=== PATIENT | male | born 1955 | race Caucasian/White ===

== ENCOUNTER 2021-12-28 09:27 | Emergency (ER) | payer OTHER, SELFPAY ==
--- NOTE | 2021-12-28 09:31 | ED.URI ---
HPI - URI/Sore Throat General Chief Complaint: Upper Respiratory Infection Stated Complaint: SORE THROAT Time Seen by Provider: 12/28/21 09:31 Source: patient and RN notes reviewed History of Present Illness HPI Narrative: Patient is a 66-year-old male who presents the urgent care with complaints of a severe sore throat that started last Thursday. Patient states he was on vacation with a lot of children and developed the sore throat and a slight head cold. Patient states that he had some chills for couple days last week and the head cold has now resolved. Denies any known fever, nausea or vomiting. Patient denies any other upper respiratory complaints at this time. States that he has been gargling with salt water and Listerine. Denies of any ill exposures directly. No other acute complaints. No acute distress noted. Patient aware of the plan of care. Some parts of this dictation were generated by voice recognition software and may contain typographical and/or grammatical inaccuracies. Related Data Allergies Allergy/AdvReac Type Severity Reaction Status Date / Time No Known Allergies Allergy Verified 12/02/21 15:28 Review of Systems Review of Systems: CONSTITUTIONAL: Denies fever, chills, or sweats. EYES: Denies visual changes, redness, or discharge. ENT: Denies rhinorrhea, congestion, or otalgia. Reports of sore throat CARDIOVASCULAR: Denies chest pain, palpitations, or edema. RESPIRATORY: Denies cough or dyspnea. GASTROINTESTINAL: Denies abdominal pain, nausea, vomiting, or diarrhea. GENITOURINARY: Denies dysuria or hematuria. SKIN: Denies rash or itching. MUSCULOSKELETAL: Denies back pain, joint pain, or myalgia. NEUROLOGIC: Denies headache, numbness, or weakness. All other systems reviewed are negative, except as documented in HPI. [facility] Surgical History Surgical History H/O discectomy (~1999) Family History Family History Sibling Diabetes mellitus Family history of obesity Mother Patient's mother is in good health Father Patient's father is , Onset Age: 40 Family history of elevated blood lipids Family history of thoracic aortic aneurysm Social History Social History (Updated 12/02/21 @ 15:29 by ERICK Herrera Smoking status: Never smoker Alcohol intake: current Comments At the time of my signature, I reviewed and agree with the nursing past medical, surgical, social, and family history. There is no relevant family history pertinent to the patient complaint. Exam Narrative: GENERAL: This is a well-nourished, well-developed patient, in no apparent distress. HEAD: normocephalic, atraumatic. EYES: PERRL. Sclera clear/white. Vision is grossly intact. EARS: External ears normal, auditory canals clear and without drainage, TMs normal without perforation. Hearing grossly intact. NOSE: External nose normal with no obvious nasal discharge, nares without redness, no rhinorrhea. THROAT: Mucous membranes moist. Mild erythema noted posterior pharynx without tonsillar edema, exudate, or erythema. Mild postnasal drainage NECK: Neck supple, non-tender without lymphadenopathy CARDIOVASCULAR: Regular rate and rhythm without murmurs, gallops, or rubs. RESPIRATORY: Clear to auscultation. Breath sounds equal bilaterally. No wheezes, rales, or rhonchi. SKIN: warm, intact with no suspicious lesions or rash, good texture and turgor. NEURO: awake, alert, and oriented to person, place and time. There were no obvious focal neurologic abnormalities. EXTREMITIES: No clubbing, cyanosis, or edema. Course Course Level of Care: Express Care Visit Vital Signs Vital signs: Vital Signs Temperature 98.8 F 12/28/21 09:33 Pulse Rate 77 12/28/21 09:33 Respiratory Rate 16 12/28/21 09:33 Blood Pressure 123/88 12/28/21 09:33 Pulse Oximetry 98 12/28/21 09:33 Temperature 98.
[2021-12-28 09:33] VITALS: BP 123/88; PULSE 77; RESP 16; TEMP 37.1; O2SAT 98
== END 2021-12-28 09:55 | disposition home or self-care (01) ==
PROVIDERS: Emergency Provider Nurse Practitioner Family; PCP Physician Assistant
DX: J02.9 Acute pharyngitis, unspecified (principal); E78.00 Pure hypercholesterolemia, unspecified
CPT/HCPCS: 87081; 87880; 99213; G0463

== ENCOUNTER → 2022-06-27 14:52 | Outpatient (CLI) | payer OTHER, SELFPAY ==
--- NOTE | ~2022-06-27 | XR_ITS ---
EXAMINATION: XR thoracic spine 3V DATE: 06/27/2022 15:22 INDICATION: Thoracic back pain TECHNIQUE: AP, lateral and lateral swimmer's views of the thoracic spine were obtained. COMPARISON: None. FINDINGS: Alignment is normal. There is no fracture. There is mild loss of intervertebral disc space height at multiple levels in the thoracic spine. Small degenerative osteophytes project from the ante rior endplates of multiple vertebral bodies. Moderate lower cervical spondylosis is noted. IMPRESSION: 1. Mild thoracic spondylosis without acute findings. Reviewed, dictated and finalized at location B. UNT ADMINISTRATOR
--- NOTE | ~2022-06-27 | XR_ITS ---
EXAMINATION: XR lumbar spine min 4V DATE: 06/27/2022 15:22 INDICATION: Low back pain TECHNIQUE: Anteroposterior, lateral, and bilateral oblique views of the lumbar spine, and cone-down l ateral view of the lumbosacral junction were obtained. COMPARISON: None. FINDINGS: There are 3 mm of retrolisthesis of L3 on L4. There is no fracture. There is moderate loss of intervertebral disc space height at L1-2, L3-4, and L5-S1. The vertebral body heights are maintain ed. Small degenerative osteophytes project from the anterior endplates of multiple vertebral bodies. There is moderate facet joint osteoarthritis of the lower lumbar spine. IMPRESSION: 1. Mild lumbar spondylosis without acute findings. Reviewed, dictated and finalized at location B. INE ATTENDANT
== END ==
PROVIDERS: PCP Physician Assistant; Visit Provider Physician Assistant
DX: M47.894 Other spondylosis, thoracic region (principal); M47.896 Other spondylosis, lumbar region
CPT/HCPCS: 72072; 72110

== ENCOUNTER → 2022-07-22 14:38 | Outpatient (CLI) | payer OTHER, SELFPAY ==
--- NOTE | ~2022-07-22 | MR_ITS ---
EXAMINATION: MR lumbar spine wo con DATE: 07/22/2022 15:37 INDICATION: Low back pain. TECHNIQUE: Magnetic resonance imaging (MRI) of the lumbar spine was performed without intravenous con trast. Sequences included sagittal T2-weighted FSE, sagittal T2-weighted FS FSE, sagittal T1-weighted FSE, and axial T2-weighted FSE. COMPARISON: Lumbar spine MRI 12/08/2017 FINDINGS: There is 3 mm retrolisthesis of L3 on L4. Vertebral body heights are normal. There is moder ately decreased disc height at L3-L4 and mildly decreased disc height at L4-L5. There is severely dec reased disc height at L5-S1 with interbody fusion. The distal spinal cord signal intensity is normal. The conus medullaris is at L1. The following disc levels are specifically discussed: L1-L2: The disc does not extend beyond the endplate margin. There is mild bilateral facet joint osteo arthritis. There is no neural foraminal stenosis. There is no central canal stenosis. L2-L3: The disc does not extend beyond the endplate margin. There is mild left facet joint osteoarthr itis. There is no neural foraminal stenosis. There is no central canal stenosis. L3-L4: The disc is bulging and has an annular fissure. There is moderate bilateral facet joint osteoa rthritis. There is moderate bilateral neural foraminal stenosis. There is mild central canal stenosis . L4-L5: The disc is bulging. There is severe bilateral facet joint osteoarthritis. There is mild bilat eral neural foraminal stenosis. There is mild central canal stenosis. L5-S1: There is mild right and moderate left facet joint osteoarthritis. There is mild right and mode rate left neural foraminal stenosis. There is mild central canal stenosis. IMPRESSION: 1. Moderate lumbar spondylosis with mild worsening at L3-L4 from 12/08/17. Reviewed, dictated and finalized at location A. ER TECHNICIAN
== END ==
PROVIDERS: PCP Physician Assistant; Visit Provider Physician Assistant
DX: M47.896 Other spondylosis, lumbar region (principal)
CPT/HCPCS: 72148

== ENCOUNTER 2023-04-10 13:29 | Emergency (ER) | payer OTHER, MEDICARE, SELFPAY ==
--- NOTE | ~2023-04-10 | XR_ITS ---
EXAMINATION: XR elbow LT min 3V DATE: 04/10/2023 14:10 INDICATION: Left elbow pain and laceration post fall TECHNIQUE: Anteroposterior, two oblique and lateral views of the left elbow were obtained. COMPARISON: None. FINDINGS: Bone alignment is normal. Cortical irregularity along the radial ulnar joint articular surface of the radial head with linear pattern of sclerosis along the trabecular pattern in the lateral projection suspicious for nondisplaced intra-articular fracture. Tiny linear calcific density projecting along t he rim of the radial head on the oblique and anteroposterior projections which could be related to ch ondrocalcinosis or additional tiny chip fracture fragment. Arguing against fractures however is the a bsence of a discernible elbow joint effusion. Mild osteoarthritis at the left elbow. Small olecranon enthesophyte with overlying skin laceration and bandage material. There is a tiny <1 mm focus of incr eased density at the proximal margin of the laceration which could represent foreign debris. IMPRESSION: 1. Possible nondisplaced intra-articular fracture at the left radial head although there is no eviden t joint effusion suggesting the appearance may be artifact of chondrocalcinosis and mild osteoarthrit ic changes. Could consider CT for more definitive determination. 2. Single minute focus of possible foreign debris along a laceration posterior to the olecranon. Reviewed, dictated and finalized at location A. UTER NETWORKING INSTRUCTOR IMPRESSION: 1. Possible nondisplaced intra-articular fracture at the left radial head altho ugh there is no evident joint effusion suggesting the appearance may be artifac t of chondrocalcinosis and mild osteoarthritic changes. Could consider CT for m ore definitive determination. 2. Single minute focus of possible foreign debris along a laceration posterior to the olecranon.
--- NOTE | ~2023-04-10 | XR_ITS ---
XR_[id number] DATE: 04/10/2023 14:10 INDICATION: Fall. Left-sided rib injury, pain TECHNIQUE: PA chest. 3 views of left ribs. COMPARISON: None FINDINGS: Normal heart size. Mild aortic unfolding. No hilar or mediastinal enlargement. Mild bilateral apical capping. No pulmonary infiltrate or consolidation, pleural effusion or pulmonar y vascular congestion or pneumothorax is detected. No left rib fracture or bone destruction is detected. IMPRESSION: Negative left ribs No active cardiopulmonary disease Reviewed, dictated and finalized at Location A. Reviewed, dictated and finalized at location B. GLE TRIMMER
[2023-04-10 13:46] VITALS: BP 142/96; PULSE 86; RESP 16; TEMP 36.6; O2SAT 99
--- NOTE | 2023-04-10 14:06 | ED.UPPEXIN ---
HPI - Extremity Injury (Upper) General Chief Complaint: Extremity Injury, Upper Stated Complaint: Left elbow injury Time Seen by Provider: 04/10/23 13:50 Source: patient and RN notes reviewed Mode of arrival: ambulatory Limitations: no limitations History of Present Illness HPI narrative: Patient presents today complaining of a laceration to his left elbow that was sustained just prior to arrival when he fell off a ladder had a 7 ft height onto some rocks at home. Denies any additional pain, but is requesting a left rib x-ray. Denies loss of consciousness. Patient recently had back surgery, but was released by his surgeon this week. Denies back pain. He is up-to-date on his tetanus vaccine. Related Data Home Medications Medication Instructions Recorded Confirmed cholecalciferol (vitamin D3) 25 25 mcg PO DAILY 09/19/22 04/10/23 mcg (1,000 unit) capsule magnesium 250 mg tablet 250 mg PO DAILY 09/19/22 04/10/23 multivitamin 1 tablet PO DAILY 09/19/22 04/10/23 Allergies Allergy/AdvReac Type Severity Reaction Status Date / Time acromycin Allergy Rash Uncoded 04/10/23 13:41 Review of Systems Review of Systems: CONSTITUTIONAL: Denies body aches, fever, chills, or sweats. EYES: Denies visual changes, redness, or discharge. ENT: Denies rhinorrhea, congestion, sore throat, or otalgia. CARDIOVASCULAR: Denies chest pain, palpitations, or edema. RESPIRATORY: Denies cough or dyspnea. GASTROINTESTINAL: Denies abdominal pain, nausea, vomiting, or diarrhea. GENITOURINARY: Denies dysuria or hematuria. SKIN: Denies rash, itching. + left elbow injury MUSCULOSKELETAL: Denies back pain, joint pain, or myalgia. NEUROLOGIC: Denies headache, numbness, tingling, or weakness. PSYCH: Denies depression or anxiety. [facility] Surgical History Surgical History H/O discectomy (~1999) History of back surgery discectomy and decompression-Dr. Macias 01/12/23 Family History Family History Sibling Diabetes mellitus Family history of obesity Mother Patient's mother is in good health Father Patient's father is , Onset Age: 40 Family history of elevated blood lipids Family history of thoracic aortic aneurysm Social History Social History Smoking status: Never smoker Alcohol intake: current Lack of Transportation: No Lack of Food: Never True Current Housing: I Have Housing Concerned About Future Housing: No Difficulty Paying Gas/Electric Bills: No Difficulty Paying for Meds: No Currently Unemployed: No Education: Master's Degree or Higher Difficulty w/ Childcare or Family Care: No Comments At time of signature, I have reviewed and agree with nursing past medical, surgical, social and family history unless otherwise noted. Please see nursing chart for further information. There is no relevant family history pertinent to the presenting complaint Exam Narrative: GENERAL: Well-appearing, well-nourished, and in no acute distress. HEAD: Normocephalic, atraumatic. EYES: EOMI. No redness or drainage. Conjunctivae normal. ENT: Mucous membranes pink and moist. NECK: Normal AROM. CHEST: No respiratory distress. Clear to auscultation. No rib tenderness. No crepitus, ecchymosis, erythema, or edema. HEART: Regular rate and rhythm. No murmur appreciated. Normal peripheral pulses. EXTREMITIES: Normal range of motion. No edema. SKIN: Warm, dry, no rash. Capillary refill normal. Normal skin turgor. 5 cm full-thickness irregular laceration to the left posterior elbow. It is contaminated with dirt. Full range of motion of the arm without pain. No bony tenderness of the elbow. Distal sensation intact. Capillary refill normal. Radial pulse normal. NEURO: No focal deficits. Alert and oriented x3. Gait steady. PSYCH: Normal affec
[2023-04-10] MEDS: LIDO 1%/EPINEPHRINE 1:100,000 20 ML VIAL INFILTRATE (14:13)
[2023-04-10] MEDS: WATER FOR IRRIGATION, STERILE 1,000 ML BOTTLE 50 ML IRRIGATION (14:16)
== END 2023-04-10 15:08 | disposition home or self-care (01) ==
PROVIDERS: Emergency Provider Nurse Practitioner; PCP Physician Assistant
DX: S51.012A Laceration without foreign body of left elbow, initial encounter (principal); S20.212A Contusion of left front wall of thorax, initial encounter; W11.XXXA Fall on and from ladder, initial encounter
CPT/HCPCS: 12032; 71101; 73080; 99213; 99214; G0463

== ENCOUNTER 2023-04-13 14:56 | Inpatient (IN) | payer OTHER, MEDICARE, SELFPAY ==
[2023-04-13] VITALS (7 sets, daily range): BP systolic 136–150; BP diastolic 68–87; PULSE 78–89; RESP 15–20; TEMP 36.5–37.9; O2SAT 100
--- NOTE | ~2023-04-13 | CT_ITS ---
EXAMINATION: CT brain wo con DATE: 04/14/2023 16:09 INDICATION: recent fall and concussion sx . TECHNIQUE: Computed tomography (CT) of the head was performed without intravenous contrast. The mA wa s adjusted according to patient size. Iterative reconstruction technique was employed. The dose-lengt h product was 681.00 mGy-cm. COMPARISON: None. FINDINGS: No acute intracranial hemorrhage or extra-axial fluid collection. No hydrocephalus, mass, or herniation. No acute ischemic infarct. Unremarkable dural venous sinus attenuation. No acute osseous abnormality. Mucosal thickening in the left frontal and left anterior ethmoid air cells aerated spaces are clear. IMPRESSION: No acute intracranial process. Reviewed, dictated and finalized at location K. RAL LABOR
--- NOTE | ~2023-04-13 | XR_ITS ---
EXAMINATION: XR elbow LT min 3V DATE: 04/13/2023 16:12 INDICATION: Fevers, recent fall with soft tissue laceration of the elbow TECHNIQUE: Anteroposterior, two oblique and lateral views of the left elbow were obtained. COMPARISON: 04/10/2023 FINDINGS: Bone alignment is normal. The previously described cortical irregularity of the radial head is not well demonstrated although the provided projections are slightly different. There is a small elbow joint effusion. There is worsened soft tissue swelling posteriorly overlying the olecranon, pro ximal forearm, and distal upper arm. IMPRESSION: 1. Worsened soft tissue swelling surrounding the elbow which could reflect cellulitis. 2. Small elbow joint effusion suggestive of occult fracture. Reviewed, dictated and finalized at location F. ASSISTANT IMPRESSION: 1. Worsened soft tissue swelling surrounding the elbow which could reflect cell ulitis. 2. Small elbow joint effusion suggestive of occult fracture.
--- NOTE | ~2023-04-13 | US_ITS ---
EXAMINATION: US guide abscess drainage DATE: 04/14/2023 16:00 INDICATION: Septic olecranon bursitis TECHNIQUE: The procedure including the risks and benefits was discussed with the patient. Risks discu ssed included bleeding including hemorrhage and bile peritonitis. Oral and written consent were obtai juan. The patient was confirmed to be receiving appropriate antibiotic coverage. The skin overlying t he posterior left elbow was prepped and draped in usual sterile fashion. Anesthetic was administered with 1% lidocaine subcutaneously. An 8.5 Fr catheter was inserted into the bursal fluid collection b y trocar technique. The metal stiffener and trocar needle were removed, and the pigtail tip was forme d and locked. 2 mm opaque Appearing li-colored fluid was aspirated and sent to the lab. The catheter was stitched to the skin with suture. Anabiotic ligament and a sterile dressing were applied. An additional adhesive fixation device was applied. The catheter was then attached to suction drainage and was draining a small amou nt of additional purulent appearing fluid at the conclusion of the procedure. There were no immediate complications. 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 S ubsequent images demonstrate the catheter advanced into the fluid collection. IMPRESSION: 1. Septic left olecranon bursitis with successful placement of a percutaneous abscess drain into the infected bursa. 2. 2 mL of purulent appearing li-colored fluid was aspirated and sent to lab for Gram stain and cult ures. Reviewed, dictated and finalized at location A. [employer] IMPRESSION: 1. Septic left olecranon bursitis with successful placement of a percutaneous a bscess drain into the infected bursa. 2. 2 mL of purulent appearing li-colored fluid was aspirated and sent to lab f or Gram stain and cultures.
--- NOTE | ~2023-04-13 | MR_ITS ---
EXAMINATION: MR elbow LT wo con DATE: 04/14/2023 09:17 INDICATION: Left elbow fracture. Effusion. TECHNIQUE: Magnetic resonance imaging (MRI) of the left elbow was performed without intravenous contr ast. COMPARISON: Left elbow radiographs 04/13/2023 FINDINGS: Osseous/other: Bone alignment is normal. No fracture. There is shallow partial-thickness cartilage loss of trochlea of distal humerus. There is deep partial thickness cartilage loss of capitellum with mild subchondral edema-like marrow signal intensity. There is shallow partial-thickness cartilage loss of proximal ra dius and ulna. Tendons: There is a partial tear of the proximal myotendinous junction of biceps muscle. The brachialis tendon is normal. The common flexor and extensor tendons are normal. Ligaments: Radial collateral ligament, lateral ulnar collateral ligament, and ulnar collateral ligament are norm al. Cubital tunnel: Ulnar nerve is normal. Fluid: There is a small elbow joint effusion. There is widespread subcutaneous edema. There is moderate olec ranon bursitis. IMPRESSION: 1. Partial tear of the proximal myotendinous junction of biceps muscle (grade 2 muscle strain). 2. No fracture. 3. Moderate elbow joint chondrosis. 4. Moderate olecranon bursitis. 5. Small elbow joint effusion. Reviewed, dictated and finalized at location E. 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
--- NOTE | 2023-04-13 15:21 | ED.UPPEXIN ---
HPI - Extremity Injury (Upper) General Chief Complaint: Extremity Injury, Upper Stated Complaint: ELBOW SURGERY Time Seen by Provider: 04/13/23 15:20 Source: patient and other (notified by an outside provider patient would be arriving ) Limitations: no limitations History of Present Illness HPI narrative: This is a right hand dominant 67 yo male who presents from [facility]. On Thursday (3 days ago), patient fell from a ladder approximately 7-13 feet. He sustained a laceration to his left elbow and presented to [facility] where xrays were performed and the wound was reported to have been irrigated extensively after lidocaine injection and laceration repaired with sutures. On Thursday night, he started to have intermittent fevers. Max temp at home 102.5F and he meadows been taking Tylenol (last dose 9am). He started a course of antibiotics Thursday (name unknown) but fevers have persisteted and he is having swelling throughout the left upper extremity at the elbow and into the forearm as well as proximally to a lesser extent. This is painful. In addition, he has noticed purulent drainage from the wound. He denies having paresthesias throughout the arm. but does state the extremity is painful to the touch. Related Data Home Medications Medication Instructions Recorded Confirmed cholecalciferol (vitamin D3) 25 25 mcg PO DAILY 09/19/22 04/13/23 mcg (1,000 unit) capsule magnesium 250 mg tablet 250 mg PO HS 09/19/22 04/13/23 multivitamin 1 tablet PO DAILY 09/19/22 04/13/23 atorvastatin 20 mg tablet 20 mg PO HS 04/13/23 04/13/23 Allergies Allergy/AdvReac Type Severity Reaction Status Date / Time acromycin Allergy Rash Uncoded 04/13/23 18:23 [facility] Surgical History Surgical History H/O discectomy (~1999) History of back surgery discectomy and decompression-Dr. Macias 01/12/23 Family History Family History Sibling Diabetes mellitus Family history of obesity Mother Patient's mother is in good health Father Patient's father is , Onset Age: 40 Family history of elevated blood lipids Family history of thoracic aortic aneurysm Social History Social History (Updated 04/14/23 @ 07:07 by Lianet Weir MD) Social History: Enjoys playing bridge (card game) Smoking status: Never smoker Alcohol intake: never Substance use: never Substance use type: does not use Lack of Transportation: No Lack of Food: Never True Current Housing: I Have Housing Concerned About Future Housing: No Difficulty Paying Gas/Electric Bills: No Difficulty Paying for Meds: No Currently Unemployed: No Education: Don't Know Difficulty w/ Childcare or Family Care: No Spiritual care concerns: No Exam Narrative: GENERAL: Well-appearing, well-nourished, and in no acute distress. HEAD: Normocephalic, atraumatic. EYES: Pupils grossly normal; EOMI. ENT: Nares clear, no rhinorrhea or epistaxis. NECK: Supple. No meningismus CHEST: No respiratory distress. Speaking in full sentences HEART: Regular rate and rhythm. Normal peripheral pulses in left upper extremity (strong 2+ radial pulse; can palpate ulnar pulse with pressure applied; brisk capillary refill throughout all digits). ABDOMEN: Soft, nontender, nondistended EXTREMITIES: FOcused assessment of left upper extremity: Compartments with edema but not taught; patient has difficulty due to pain with full pronation and supination but demonstrates approximately 40 degrees (from 0 degrees to 40 degrees relative to the angle of the floor) of flexion at the elbow actively. Otherwise, arm held extended for comfort but not in fixed extension. Able to perform approximately the same on passive ROM. SKIN: soft tissue swelling in LUE; 2+ pitting edema throughout forearm of left upper extremity; 1+ pitting edema more proximally; overlying ill-defin
[2023-04-13 15:49] LABS: Basophils Percent Auto 0.2 % (0.2-1.2); Eosinophils Absolute Auto 0.1 K/mm3 (0-0.3); Eosinophils Percent Auto 0.8 % (0-4.4); Hematocrit 38.1 % (42.0-52.0); Hemoglobin 12.2 g/dL (14.0-18.0); Immature Granulocyte Absolute 0.06 K/mm3 (0.00-0.031); Immature Granulocyte Percent A 0.7 % (0-0.5); Lymphocytes Absolute Auto 0.77 K/mm3 (0.9-3.2); Lymphocytes Percent Auto 8.4 % (18.3-44.2); Mean Corpuscular Hemoglobin 30.9 pg (26-34); Mean Corpuscular Volume 96.5 fl (80-100); Mean Platelet Volume 10.7 fl (7.4-10.4); Monocytes Absolute Auto 0.7 K/mm3 (0.1-0.6); Monocytes Percent Auto 7.2 % (2.6-8.5); Neutrophils Absolute Auto 7.6 K/mm3 (1.3-6.7); Neutrophils Percent Auto 82.7 % (45.5-73.1); Platelet Count Result 199 k/mm3 (150-375); Red Blood Count 3.95 M/mm3 (4.6-6.20); White Blood Count 9.2 K/mm3 (4.5-10.0)
[2023-04-13] MEDS: MORPHINE SULFATE (*CRX) 4 MG/ML INJ IV PUSH (15:57)
[2023-04-13 15:58] LABS: Lactic Acid Reflex 1.6 mmol/L (0.7-2.0)
[2023-04-13 16:12] LABS: Alanine Aminotransferase 28 U/L (6-50); Albumin Level 4.2 g/dL (3.5-5.1); Alkaline Phosphatase 80 U/L (38-126); Anion Gap 9 mmol/L (8-16); Aspartate Amino Transferase 30 U/L (17-59); Bilirubin,Total 0.8 mg/dL (0.2-1.3); Blood Urea Nitrogen 17 mg/dL (9-20); Calcium 9.2 mg/dL (8.4-10.2); Carbon Dioxide 26 mmol/L (22-30); Chloride 103 mmol/L (98-107); Estimated CRCL calculation 65 ml/min; Estimated Glomerular Filt Rate > 60; Glucose 145 mg/dL (65-110); Lipase 43 U/L (23-300); Potassium 3.3 mmol/L (3.4-5.0); Sodium 138 mmol/L (137-145)
[2023-04-13 16:13] LABS: INR 1.1; Partial Thromboplastin Time 34.5 SECONDS (22.3-36.8); Prothrombin Time 14.5 Seconds (11.1-14.7); Troponin I < 0.012 ng/mL (0.000-0.034)
[2023-04-13 16:20] LABS: CRP 19.7 mg/dL (<1.0)
[2023-04-13] MEDS: POTASSIUM PHOS/SODIUM PHOS 250 MG TABLET PO (17:22)
[2023-04-13 17:54] LABS: Magnesium 2.2 mg/dL (1.6-2.3)
--- NOTE | 2023-04-13 18:16 | ADMGEN ---
This patient, Nirav Gonzáles, was admitted to Medical Room 246-01. Patient/family oriented to hospital policies and general routines including ID bracelet, bed and alarms, visiting hours, pain management, procedures, bathroom and other care routines, personal items, smoking policy, room service/diet, and visiting hours. Information on how to activate the Rapid Response Team has been discussed. Patient/Family are encouraged to report perceived risks to care and to ask questions if they do not understand what they are told or what they should do.
--- NOTE | 2023-04-13 20:47 | PM.IMHP ---
H&P: HPI History of Present Illness Date/Time: 04/13/23 20:47 Chief Complaint: LUE tenderness. Narrative: This is a 67-year-old male with past medical history significant for dyslipidemia. Patient presents to the emergency room due to left elbow swelling, redness swelling and tenderness of the forearm. Patient sustained a fall from a 13 ft ladder with laceration wound to the left elbow, status post suturing. Patient has had chills, night sweats and stomach upset. Has been taking levofloxacin. Preliminary workup was significant for x-ray of the able was reported as: EXAMINATION: XR elbow LT min 3V DATE: 04/13/2023 16:12 INDICATION: Fevers, recent fall with soft tissue laceration of the elbow TECHNIQUE: Anteroposterior, two oblique and lateral views of the left elbow were obtained. COMPARISON: 04/10/2023 FINDINGS: Bone alignment is normal. The previously described cortical irregularity of the radial head is not well demonstrated although the provided projections are slightly different. There is a small elbow joint effusion. There is worsened soft tissue swelling posteriorly overlying the olecranon, proximal forearm, and distal upper arm. IMPRESSION: 1. Worsened soft tissue swelling surrounding the elbow which could reflect cellulitis. 2. Small elbow joint effusion suggestive of occult fracture. Patient has been admitted for further evaluation management and treatment. Review of Systems Review of Systems: fall, trauma to the L ELBOW, LACERATION WOUND, SWELLING REDNESS, TENDERNESS, L ELBOW Constitutional: Constitutional: Reports chills, Reports fatigue, Reports fever(s), Reports malaise, Reports night sweats, Reports poor appetite and Reports weakness Eyes: Eyes: Denies change in vision ENT: Denies dysphagia, Denies vertigo, Denies dizziness and Denies odynophagia Cardiovascular: Cardiovascular: Denies chest pain, Denies radiating jaw, neck or arm pain and Denies palpitations Respiratory: Respiratory: Denies chest congestion and Denies dyspnea Gastrointestinal: Gastrointestinal: Denies abdominal pain, Denies dyspepsia, Denies heartburn, Denies diarrhea, Denies nausea and Denies vomiting Genitourinary: Genitourinary: Denies dysuria and Denies flank pain Musculoskeletal: Musculoskeletal: Reports deformity, Reports arthralgias (L elbow), Reports joint swelling and Reports limited range of motion Integumentary/Breasts: Skin/Breast: Reports swelling, Reports erythema, Reports skin swelling and Reports other (L elbow laceration wound) Neurologic: Denies vertigo, Denies dizziness, Denies focal weakness and Denies Sensory deficit (Neuro) Psychiatric: Psychiatric: Reports no additional psychiatric complaints and Reports as per HPI Endocrine: Endocrine: Denies cold intolerance, Denies fatigue, Denies flushing, Denies heat intolerance, Denies polyphagia, Denies polydipsia, Denies polyuria and Denies palpitations Hematologic/Lymphatic: Hematologic/Lymphatic: Reports no additional hematologic/lymphatic complaints and Reports as per HPI Allergic/Immunologic: Allergic/Immunologic: Reports no additional allergic/immunologic complaints and Reports as per HPI PMFSH Surgical History Surgical History (Updated 04/23/23 @ 14:07 by Juanita Coats CMA) H/O discectomy (~1999) History of back surgery discectomy and decompression-Dr. Macias 01/12/23 History of sinus surgery History of tonsillectomy Family History Family History Sibling Diabetes mellitus Family history of obesity Mother Patient's mother is in good health Father Patient's father is , Onset Age: 40 Family history of elevated blood lipids Family history of thoracic aortic aneurysm Social History Social History (Updated 04/23/23 @ 14:08 by Juanita Coats CMA) Social History: Enjoys playing bridge (card game) Smoking status: Never smoker Alcohol intake: never Subst
[2023-04-13] MEDS: ACETAMINOPHEN 325 MG TABLET 650 MG PO (21:32)
[2023-04-14 00:23] VITALS: BMI 30.4
[2023-04-14 04:53] VITALS: BP 117/66; PULSE 65; RESP 20; TEMP 37; O2SAT 99
[2023-04-14 06:22] LABS: Estimated CRCL calculation 79 ml/min; Estimated Glomerular Filt Rate > 60
--- NOTE | 2023-04-14 07:07 | PM.IMPN ---
Progress Note: A&P Assessment and Plan (1) Elbow laceration: Qualifiers: Encounter type: subsequent encounter Laterality: left Qualified Code(s): S51.012D - Laceration without foreign body of left elbow, subsequent encounter Code(s): S51.019A - Laceration without foreign body of unspecified elbow, initial encounter Status: Acute Assessment and Plan: 04/10 fall from ladder suffering left elbow laceration. Initially cleaned and sutured closed in the ED on 04/10. D/c home with keflex. Now with concerns for septic olecranon bursitis and cellulitis. Started on Vancomycin and received 1 dose of IV gentamicin from ortho. Blood cultures pending Elevate arm above level of the heart Pain medication with Tylenol, tramadol and prn Dilaudid Orthopedics is consulted and recommendations are appreciated. NPO at midnight in case he is to go for surgery tomorrow. (2) Cellulitis and abscess of other specified site: Code(s): L03.818 - Cellulitis of other sites; L02.818 - Cutaneous abscess of other sites Status: Acute Assessment and Plan: see 1 (3) Low back pain: Qualifiers: Back pain laterality: unspecified Chronicity: unspecified Sciatica presence: unspecified whether sciatica present Qualified Code(s): M54.50 - Low back pain, unspecified Code(s): M54.50 - Low back pain, unspecified Status: Acute Assessment and Plan: Chronic and just recently had back surgery. No complaints at this time. Even after his fall his back has not been bothering him. Plan Feeding:general diet, NPO at MD Analgesia:tylenol, tramadol, dilaudid Thromboembolic prophylaxis: lovenox Ulcer prophylaxis: na Glycemic control: na Bowel regimen: miralax prn Lines: PIV Antibiotics:Vancomycin Disposition: Home when clinically able. Subjective Date/time seen: 04/14/23 07:07 Interval history: Very pleasant 67 year old male with a PMH of hyperlipidemia and recent back surgery approximately 6 weeks ago. He presented to the ED on 04/13 from his PCP's office for concerns of cellulitis. On Thursday, 04/10 he was cleaning out his gutters when he fell approximately 7-10 feet from his ladder striking his back, head, and left arm on a landscaping rock. He denies LOC at the time of the fall. He was seen in the ED where his left arm laceration was cleansed and closed with sutures. No fractures seen on imaging. He was discharged home with Keflex. He says that over the next couple of days he was having headaches, dizziness, and difficulty with his vision. He assumed these symptoms were from a possible concussion from his fall. These symptoms have since resolved. He started having fevers on Thursday evening. Tmax of 102.5. He was treating with tylenol. On Thursday he went to his PCP's office to be seen as he was having increased drainage and recurrent fevers and he was asked to come to the ED for evaluation. In the ED his WBC was 9.2, neutrophils 73.5%, and temperature 100.2. Elbow xray showed worsened soft tissue swelling and small joint effusion suggestive of occult fracture. Orthopedics was consulted and recommended an MRI which shows partial tear of the proximal myotendinous junction of the biceps, no fracture, moderate joint chondrosis, moderate olecranon bursitis, and small joint effusion. Orthopedics placed him on IV vancomycin and will see if IR can drain the effusion. Should his clinical picture not improve with the vancomycin then he will go for surgery for a wound wash out. Today he is feeling okay. He has pain with movement but no pain at rest with elevation. The arm is tender with gentle manipulation and there is excessive swelling of +3-4 edema present. Neurovascularly still intact but his fingers are slightly pale compared to the right arm. He denies numbness, tingling at this time. I urged him to notify staff should he start to have sensation changes as he is at risk for comp
[2023-04-14 07:20] LABS: Basophils Percent Auto 0.3 % (0.2-1.2); Eosinophils Absolute Auto 0.2 K/mm3 (0-0.3); Hematocrit 33.8 % (42.0-52.0); Hemoglobin 11.1 g/dL (14.0-18.0); Immature Granulocyte Absolute 0.04 K/mm3 (0.00-0.031); Immature Granulocyte Percent A 0.6 % (0-0.5); Lymphocytes Absolute Auto 0.87 K/mm3 (0.9-3.2); Lymphocytes Percent Auto 13.1 % (18.3-44.2); Mean Corpuscular HGB Conc 32.8 g/dl (32-36); Mean Corpuscular Hemoglobin 31.3 pg (26-34); Mean Corpuscular Volume 95.2 fl (80-100); Mean Platelet Volume 10.3 fl (7.4-10.4); Monocytes Absolute Auto 0.6 K/mm3 (0.1-0.6); Monocytes Percent Auto 9.5 % (2.6-8.5); Neutrophils Absolute Auto 4.9 K/mm3 (1.3-6.7); Neutrophils Percent Auto 73.5 % (45.5-73.1); Platelet Count Result 193 k/mm3 (150-375); Red Blood Count 3.55 M/mm3 (4.6-6.20); Red Cell Distribution Width 12.8 % (11.5-14.5); White Blood Count 6.7 K/mm3 (4.5-10.0)
[2023-04-14] MEDS: ACETAMINOPHEN 500 MG TABLET 1000 MG PO ×2 (07:25→19:16)
[2023-04-14 07:29] LABS: Alanine Aminotransferase 32 U/L (6-50); Albumin Level 3.5 g/dL (3.5-5.1); Alkaline Phosphatase 88 U/L (38-126); Anion Gap 9 mmol/L (8-16); Aspartate Amino Transferase 38 U/L (17-59); Bilirubin,Total 0.8 mg/dL (0.2-1.3); Blood Urea Nitrogen 13 mg/dL (9-20); Calcium 8.5 mg/dL (8.4-10.2); Carbon Dioxide 26 mmol/L (22-30); Chloride 102 mmol/L (98-107); Estimated CRCL calculation 79 ml/min; Estimated Glomerular Filt Rate > 60; Glucose 124 mg/dL (65-110); Potassium 3.8 mmol/L (3.4-5.0); Sodium 137 mmol/L (137-145)
[2023-04-14] MEDS: POTASSIUM CHLORIDE 20 MEQ ER TABLET 40 MEQ PO (08:13)
[2023-04-14] MEDS: ENOXAPARIN 40 MG/0.4 ML SYRINGE SUB-Q (08:13)
[2023-04-14 08:15] VITALS: O2SAT 99
[2023-04-14 08:30] VITALS: TEMP 37
--- NOTE | 2023-04-14 12:33 | PM.CNOR ---
Assessment and Plan Assessment and plan (1) Septic olecranon bursitis of left elbow: Code(s): M71.122 - Other infective bursitis, left elbow Status: Acute Assessment and Plan: Patient has developed septic olecranon bursitis. He is admitted for treatment. We will up on him on vancomycin if the swelling does not get that go down to get worse will require surgical debridement I have discussed this with him risks benefits limitations and alternatives in detail. He has some bursitis but no really large fluid collection I can see on the MRI scan. Will see if Radiology can aspirate this. History of Present Illness HPI Consult date: 04/14/23 Chief complaint: Cellulitis Failed Outpatient Therapy Narrative: Patient presents after a fall with a laceration elbow. Went to the emergency room on 04/10/23 and had the laceration closed. This has become infected. Went to the emergency room last night got admitted of his consult further for further evaluation treatment. Review of Systems Constitutional: Constitutional: Reports body ache(s) and Reports chills Musculoskeletal: Musculoskeletal: Reports arthralgias and Reports joint swelling PMFSH Surgical History Surgical History H/O discectomy (~1999) History of back surgery discectomy and decompression-Dr. Macias 01/12/23 Family History Family History Sibling Diabetes mellitus Family history of obesity Mother Patient's mother is in good health Father Patient's father is , Onset Age: 40 Family history of elevated blood lipids Family history of thoracic aortic aneurysm Social History Social History (Updated 04/14/23 @ 07:07 by Lianet Weir MD) Social History: Enjoys playing bridge (card game) Smoking status: Never smoker Alcohol intake: never Substance use: never Substance use type: does not use Lack of Transportation: No Lack of Food: Never True Current Housing: I Have Housing Concerned About Future Housing: No Difficulty Paying Gas/Electric Bills: No Difficulty Paying for Meds: No Currently Unemployed: No Education: Don't Know Difficulty w/ Childcare or Family Care: No Spiritual care concerns: No Meds Home Medications and Allergies Home Medications Medication Instructions Recorded Confirmed Type cholecalciferol (vitamin D3) 25 25 mcg PO DAILY 09/19/22 04/13/23 History mcg (1,000 unit) capsule magnesium 250 mg tablet 250 mg PO HS 09/19/22 04/13/23 History multivitamin 1 tablet PO DAILY 09/19/22 04/13/23 History sildenafil 100 mg tablet (Viagra) 100 mg PO DAILY PRN sexual 11/24/22 04/13/23 Rx activity #10 tabs cephalexin 500 mg capsule 500 mg PO Q6H 7 days #28 caps 04/10/23 04/13/23 Rx atorvastatin 20 mg tablet 20 mg PO HS 04/13/23 04/13/23 History Allergies Allergy/AdvReac Type Severity Reaction Status Date / Time acromycin Allergy Rash Uncoded 04/13/23 18:23 Vital Signs Vital Signs - 24 hr 04/13/23 14:57 04/13/23 15:59 04/13/23 17:23 Temperature 97.7 F Pulse Rate 89 82 87 Respiratory Rate 20 15 15 Blood Pressure 144/84 H 146/87 H 144/82 H Pulse Oximetry 100 100 100 Oxygen Delivery Room Air 04/13/23 18:19 04/13/23 18:53 04/13/23 21:04 Temperature 99.1 F 100.2 F H Pulse Rate 78 78 81 Respiratory Rate 17 17 20 Blood Pressure 136/82 150/68 H Pulse Oximetry 100 100 100 Oxygen Delivery Room Air 04/13/23 21:34 04/14/23 04:53 04/14/23 08:30 Temperature 98.7 F 98.6 F 98.6 F Pulse Rate 65 Respiratory Rate 20 Blood Pressure 117/66 Pulse Oximetry 99 Oxygen Delivery 04/14/23 08:15 Temperature Pulse Rate Respiratory Rate Blood Pressure Pulse Oximetry 99 Oxygen Delivery Room Air Exam Narrative: On exam he has got moderate swelling about the elbow is some erythema about the old incision he is quite tender to palpation
[2023-04-14 14:00] VITALS: BP 124/75; PULSE 72; RESP 18; TEMP 37.4; O2SAT 99
[2023-04-14 15:16] LABS: Estimated CRCL calculation 71 ml/min; Estimated Glomerular Filt Rate > 60
[2023-04-14] MEDS: GENTAMICIN SULFATE INJ 470 MG in DEXTROSE 5% 100 ML 100 MG IVPB (17:07)
[2023-04-14] MEDS: ATORVASTATIN 20 MG TABLET PO (19:16)
[2023-04-14 19:17] VITALS: BP 130/80; PULSE 78; RESP 18; TEMP 36.5; O2SAT 95
[2023-04-15] MEDS: ACETAMINOPHEN 500 MG TABLET 1000 MG PO ×3 (01:19→20:13)
[2023-04-15 04:07] LABS: Basophils Percent Auto 0.6 % (0.2-1.2); Eosinophils Absolute Auto 0.4 K/mm3 (0-0.3); Eosinophils Percent Auto 6.7 % (0-4.4); Hematocrit 36.8 % (42.0-52.0); Immature Granulocyte Absolute 0.03 K/mm3 (0.00-0.031); Immature Granulocyte Percent A 0.6 % (0-0.5); Lymphocytes Absolute Auto 1.11 K/mm3 (0.9-3.2); Lymphocytes Percent Auto 21.1 % (18.3-44.2); Mean Corpuscular HGB Conc 32.6 g/dl (32-36); Mean Corpuscular Hemoglobin 30.6 pg (26-34); Mean Corpuscular Volume 93.9 fl (80-100); Monocytes Absolute Auto 0.5 K/mm3 (0.1-0.6); Monocytes Percent Auto 10.1 % (2.6-8.5); Neutrophils Absolute Auto 3.2 K/mm3 (1.3-6.7); Neutrophils Percent Auto 60.9 % (45.5-73.1); Platelet Count Result 224 k/mm3 (150-375); Red Blood Count 3.92 M/mm3 (4.6-6.20); Red Cell Distribution Width 12.8 % (11.5-14.5); White Blood Count 5.3 K/mm3 (4.5-10.0)
[2023-04-15 04:18] LABS: Anion Gap 10 mmol/L (8-16); Blood Urea Nitrogen 13 mg/dL (9-20); Calcium 8.9 mg/dL (8.4-10.2); Carbon Dioxide 27 mmol/L (22-30); Chloride 103 mmol/L (98-107); Estimated CRCL calculation 79 ml/min; Estimated Glomerular Filt Rate > 60; Glucose 126 mg/dL (65-110); Sodium 140 mmol/L (137-145)
[2023-04-15 04:49] LABS: Gentamicin Random 2.4 ug/mL (5.0-12.0)
[2023-04-15 06:00] VITALS: BP 142/90; PULSE 64; RESP 18; TEMP 36.4; O2SAT 97
[2023-04-15 08:00] VITALS: O2SAT 96
[2023-04-15] MEDS: ENOXAPARIN 40 MG/0.4 ML SYRINGE SUB-Q (08:39)
--- NOTE | 2023-04-15 11:53 | PM.IMPN ---
Progress Note: A&P Assessment and Plan (1) Elbow laceration: Qualifiers: Encounter type: subsequent encounter Laterality: left Qualified Code(s): S51.012D - Laceration without foreign body of left elbow, subsequent encounter Code(s): S51.019A - Laceration without foreign body of unspecified elbow, initial encounter Status: Acute Assessment and Plan: 04/10 fall from ladder suffering left elbow laceration. Initially cleaned and sutured closed in the ED on 04/10. D/c home with keflex. Now with concerns for septic olecranon bursitis and cellulitis. Started on Vancomycin and received 1 dose of IV gentamicin from ortho. Blood cultures pending Elevate arm above level of the heart Pain medication with Tylenol, tramadol and prn Dilaudid Orthopedics is consulted and recommendations are appreciated. NPO at midnight in case he is to go for surgery tomorrow. 04/15: No plans for OR, drain in place with serous drainage (2) Cellulitis and abscess of other specified site: Code(s): L03.818 - Cellulitis of other sites; L02.818 - Cutaneous abscess of other sites Status: Acute Assessment and Plan: see 1 (3) Low back pain: Qualifiers: Chronicity: unspecified Back pain laterality: unspecified Sciatica presence: unspecified whether sciatica present Qualified Code(s): M54.50 - Low back pain, unspecified Code(s): M54.50 - Low back pain, unspecified Status: Acute Assessment and Plan: Chronic and just recently had back surgery. No complaints at this time. Even after his fall his back has not been bothering him. Plan Feeding: regular Analgesia:Tylenol, tramadol, Dilaudid Thromboembolic prophylaxis: Lovenox Ulcer prophylaxis: na Glycemic control: na Bowel regimen: miralax prn Lines: PIV Antibiotics:Vancomycin and Rocephin Disposition: Home when clinically able. Time Spent With Patient Time with patient: 25 - 35 minutes Subjective Date/time seen: 04/15/23 11:53 Interval history: 04/14: Very pleasant 67 year old male with a PMH of hyperlipidemia and recent back surgery approximately 6 weeks ago. He presented to the ED on 04/13 from his PCP's office for concerns of cellulitis. On Thursday, 04/10 he was cleaning out his gutters when he fell approximately 7-10 feet from his ladder striking his back, head, and left arm on a landscaping rock. He denies LOC at the time of the fall. He was seen in the ED where his left arm laceration was cleansed and closed with sutures. No fractures seen on imaging. He was discharged home with Keflex. He says that over the next couple of days he was having headaches, dizziness, and difficulty with his vision. He assumed these symptoms were from a possible concussion from his fall. These symptoms have since resolved. He started having fevers on Thursday evening. Tmax of 102.5. He was treating with Tylenol. On Thursday he went to his PCP's office to be seen as he was having increased drainage and recurrent fevers and he was asked to come to the ED for evaluation. In the ED his WBC was 9.2, neutrophils 73.5%, and temperature 100.2. Elbow xray showed worsened soft tissue swelling and small joint effusion suggestive of occult fracture. Orthopedics was consulted and recommended an MRI which shows partial tear of the proximal myotendinous junction of the biceps, no fracture, moderate joint chondrosis, moderate olecranon bursitis, and small joint effusion. Orthopedics placed him on IV vancomycin and will see if IR can drain the effusion. Should his clinical picture not improve with the vancomycin then he will go for surgery for a wound wash out. Today he is feeling okay. He has pain with movement but no pain at rest with elevation. The arm is tender with gentle manipulation and there is excessive swelling of +3-4 edema present. Neurovascularly still intact but his fingers are slightly pale compared to the right arm. He denies numbness,
--- NOTE | 2023-04-15 11:58 | PM.PNORT ---
Progress Note: A&P Assessment and Plan (1) Septic olecranon bursitis of left elbow: Code(s): M71.122 - Other infective bursitis, left elbow Status: Acute Assessment and Plan: Patient is status post aspiration bursa septic olecranon bursitis growing gram-negative bacilli he did have another culture the Gram positive and will continue IV antibiotics and if he continues to resolve hopefully send him home some antibiotics the couple of days discussed. (2) Cellulitis of left upper arm: Code(s): L03.114 - Cellulitis of left upper limb Status: Acute Subjective Subjective Date/Time Seen: 04/15/23 11:58 Principal diagnosis: Septic Olecranon Bursitis Interval history: Patient is status post aspiration left elbow couple cc of purulence were obtained so far growing Gram-negative bacillus he has Gram-positive on another culture. Exam Narrative: Swelling redness resolving wiggles his fingers 5 progressing slowly. Objective Data Vital Signs Vital Signs: Vital Signs - 24 hr 04/14/23 14:00 04/14/23 19:17 04/15/23 06:00 Temperature 99.4 F 97.7 F 97.5 F L Pulse Rate 72 78 64 Respiratory Rate 18 18 18 Blood Pressure 124/75 130/80 142/90 H Pulse Oximetry 99 95 97 Oxygen Delivery 04/15/23 08:00 Temperature Pulse Rate Respiratory Rate Blood Pressure Pulse Oximetry 96 Oxygen Delivery Room Air Intake/Output Intake/Output: Intake & Output 04/12/23 04/13/23 04/14/23 04/15/23 23:59 23:59 23:59 23:59 Intake Total 500 2451.75 740 Output Total 1000 Balance 500 1451.75 740 Meds/Results Medications: Active Medications Generic Name Dose Route Start Last Admin Trade Name Freq PRN Reason Stop Dose Admin Acetaminophen 1,000 mg 04/14/23 00:28 04/15/23 01:19 Acetaminophen 500 Mg Tablet PO 1,000 mg Q6H PRN Administration Mild Pain (1-3) or Fever Al Hydrox/Mg Hydrox/Simethicone 30 ml 04/14/23 00:28 Mag Hydrox/Al Hydrox/Simeth 30 Ml Udc PO Q6H PRN Indigestion Atorvastatin Calcium 20 mg 04/14/23 21:00 04/14/23 19:16 Atorvastatin 20 Mg Tablet PO 20 mg HS ALEA Administration Diphenhydramine HCl 25 mg 04/14/23 00:34 Diphenhydramine Hcl Inj 50 Mg/Ml Vial IV PUSH Q8H PRN Allergic Reaction Enoxaparin Sodium 40 mg 04/14/23 09:00 04/15/23 08:39 Enoxaparin 40 Mg/0.4 Ml Syringe SUB-Q 40 mg DAILY ALEA Administration Hydromorphone HCl 0.5 mg 04/14/23 00:28 Hydromorphone Hcl Inj (*Crx) 1 Mg/Ml Syr IV PUSH Q3H PRN Pain Rated 7-10 Vancomycin HCl 1,500 mg in 500 mls @ 250 mls/hr 04/14/23 13:00 04/15/23 08:47 Vancomycin 1,500 Mg/D5w 500 Ml IVPB Infused Q18H ALEA Infusion Ceftriaxone Sodium 2 gm in 100 mls @ 200 mls/hr 04/15/23 12:00 Rocephin 2 Gm/Ns 100 Ml IVPB DAILY ALEA Ondansetron HCl 4 mg 04/14/23 00:28 Ondansetron Inj 4 Mg/2 Ml Vial IV PUSH Q6H PRN Nausea And Vomiting Polyethylene Glycol 17 gm 04/14/23 00:28 Polyethylene Glycol 3350 17 Gm Powd.Pack PO QAM PRN Constipation Tramadol HCl 50 mg 04/14/23 00:28 Tramadol Hcl (*Crx) 50 Mg Tablet PO Q6H PRN Pain Rated 4-6 Radiology Results: ITS Impressions Elbow X-Ray 04/13/23 16:22 IMPRESSION: 1. Worsened soft tissue swelling surrounding the elbow which could reflect cellulitis. 2. Small elbow joint effusion suggestive of occult fracture. Elbow MRI 04/14/23 09:33 IMPRESSION: 1. Partial tear of the proximal myotendinous junction of biceps muscle (grade 2 muscle strain). 2. No fracture. 3. Moderate elbow joint chondrosis. 4. Moderate olecranon bursitis. 5. Small elbow joint effusion. Head CT 04/14/23 16:40 IMPRESSION: No acute intracranial process. Abscess Drainage Ultrasound 04/14/23 17:09 IMPRESSION: 1. Septic left olecranon bursitis with successful placement of a percutaneous abscess drain into the infected bursa. 2. 2 mL of purulent appearin
[2023-04-15] MEDS: cefTRIAXone 2 GM/NS 100 ML 2 GM/100 ML BAG IVPB (12:23)
[2023-04-15 14:42] VITALS: BP 126/71; PULSE 66; RESP 16; TEMP 36.9; O2SAT 97
[2023-04-15 19:32] VITALS: BP 124/73; PULSE 70; RESP 20; TEMP 37; O2SAT 97
[2023-04-15] MEDS: ATORVASTATIN 20 MG TABLET PO (20:13)
[2023-04-16 01:14] LABS: Vancomycin Trough 7.9 ug/mL (10.0-20.0)
[2023-04-16] MEDS: ACETAMINOPHEN 500 MG TABLET 1000 MG PO ×3 (03:23→20:43)
[2023-04-16 04:30] VITALS: BP 142/85; PULSE 61; RESP 20; TEMP 36.7; O2SAT 97
[2023-04-16 06:04] LABS: Basophils Percent Auto 0.7 % (0.2-1.2); Eosinophils Absolute Auto 0.5 K/mm3 (0-0.3); Eosinophils Percent Auto 9.3 % (0-4.4); Hematocrit 35.8 % (42.0-52.0); Hemoglobin 11.6 g/dL (14.0-18.0); Immature Granulocyte Absolute 0.08 K/mm3 (0.00-0.031); Immature Granulocyte Percent A 1.4 % (0-0.5); Lymphocytes Absolute Auto 1.07 K/mm3 (0.9-3.2); Lymphocytes Percent Auto 18.8 % (18.3-44.2); Mean Corpuscular HGB Conc 32.4 g/dl (32-36); Mean Corpuscular Hemoglobin 30.4 pg (26-34); Mean Corpuscular Volume 93.7 fl (80-100); Mean Platelet Volume 9.7 fl (7.4-10.4); Monocytes Absolute Auto 0.6 K/mm3 (0.1-0.6); Monocytes Percent Auto 11.1 % (2.6-8.5); Neutrophils Absolute Auto 3.3 K/mm3 (1.3-6.7); Neutrophils Percent Auto 58.7 % (45.5-73.1); Platelet Count Result 241 k/mm3 (150-375); Red Blood Count 3.82 M/mm3 (4.6-6.20); Red Cell Distribution Width 12.5 % (11.5-14.5); White Blood Count 5.7 K/mm3 (4.5-10.0)
[2023-04-16 06:15] LABS: Anion Gap 8 mmol/L (8-16); Blood Urea Nitrogen 13 mg/dL (9-20); Carbon Dioxide 27 mmol/L (22-30); Chloride 102 mmol/L (98-107); Estimated CRCL calculation 71 ml/min; Estimated Glomerular Filt Rate > 60; Glucose 116 mg/dL (65-110); Potassium 4.1 mmol/L (3.4-5.0); Sodium 137 mmol/L (137-145)
[2023-04-16] MEDS: ENOXAPARIN 40 MG/0.4 ML SYRINGE SUB-Q (08:36)
[2023-04-16] MEDS: cefTRIAXone 2 GM/NS 100 ML 2 GM/100 ML BAG IVPB (08:36)
--- NOTE | 2023-04-16 12:15 | PM.IMPN ---
Progress Note: A&P Assessment and Plan (1) Elbow laceration: Qualifiers: Encounter type: subsequent encounter Laterality: left Qualified Code(s): S51.012D - Laceration without foreign body of left elbow, subsequent encounter Code(s): S51.019A - Laceration without foreign body of unspecified elbow, initial encounter Status: Acute Assessment and Plan: 04/10 fall from ladder suffering left elbow laceration. Initially cleaned and sutured closed in the ED on 04/10. D/c home with keflex. Now with concerns for septic olecranon bursitis and cellulitis. Started on Vancomycin and received 1 dose of IV gentamicin from ortho. Blood cultures still pending, wound culture positive for E coli conitnue wound drain per ortho Pain medication with Tylenol, tramadol and prn Dilaudid ortho following 04/15: No plans for OR, drain in place with serous drainage (2) Cellulitis and abscess of other specified site: Code(s): L03.818 - Cellulitis of other sites; L02.818 - Cutaneous abscess of other sites Status: Acute Assessment and Plan: see 1 (3) Low back pain: Qualifiers: Chronicity: unspecified Back pain laterality: unspecified Sciatica presence: unspecified whether sciatica present Qualified Code(s): M54.50 - Low back pain, unspecified Code(s): M54.50 - Low back pain, unspecified Status: Acute Assessment and Plan: Chronic and just recently had back surgery. No complaints at this time. Even after his fall his back has not been bothering him. Plan Feeding: regular Analgesia:Tylenol, tramadol, Dilaudid Thromboembolic prophylaxis: Lovenox Ulcer prophylaxis: na Glycemic control: na Bowel regimen: miralax prn Lines: PIV Antibiotics:Vancomycin and Levaquin Disposition: Home when clinically able. Subjective Date/time seen: 04/16/23 12:15 Interval history: 04/14: Very pleasant 67 year old male with a PMH of hyperlipidemia and recent back surgery approximately 6 weeks ago. He presented to the ED on 04/13 from his PCP's office for concerns of cellulitis. On Thursday, 04/10 he was cleaning out his gutters when he fell approximately 7-10 feet from his ladder striking his back, head, and left arm on a landscaping rock. He denies LOC at the time of the fall. He was seen in the ED where his left arm laceration was cleansed and closed with sutures. No fractures seen on imaging. He was discharged home with Keflex. He says that over the next couple of days he was having headaches, dizziness, and difficulty with his vision. He assumed these symptoms were from a possible concussion from his fall. These symptoms have since resolved. He started having fevers on Thursday evening. Tmax of 102.5. He was treating with Tylenol. On Thursday he went to his PCP's office to be seen as he was having increased drainage and recurrent fevers and he was asked to come to the ED for evaluation. In the ED his WBC was 9.2, neutrophils 73.5%, and temperature 100.2. Elbow xray showed worsened soft tissue swelling and small joint effusion suggestive of occult fracture. Orthopedics was consulted and recommended an MRI which shows partial tear of the proximal myotendinous junction of the biceps, no fracture, moderate joint chondrosis, moderate olecranon bursitis, and small joint effusion. Orthopedics placed him on IV vancomycin and will see if IR can drain the effusion. Should his clinical picture not improve with the vancomycin then he will go for surgery for a wound wash out. Today he is feeling okay. He has pain with movement but no pain at rest with elevation. The arm is tender with gentle manipulation and there is excessive swelling of +3-4 edema present. Neurovascularly still intact but his fingers are slightly pale compared to the right arm. He denies numbness, tingling at this time. I urged him to notify staff should he start to have sensation changes as he is at risk for compartment syndrom
[2023-04-16] MEDS: levoFLOXacin 750 MG/D5W 150 ML 750 MG/150 ML BAG 100 MG IVPB (13:14)
[2023-04-16 14:02] VITALS: BP 136/79; PULSE 62; RESP 16; TEMP 36.4; O2SAT 99
--- NOTE | 2023-04-16 14:05 | PM.PNORT ---
Progress Note: A&P Assessment and Plan (1) Septic olecranon bursitis of left elbow: Code(s): M71.122 - Other infective bursitis, left elbow Status: Acute Assessment and Plan: Marked improvement. Awaiting sensitivities. Will ask ID for antibiotic recommendations. Subjective Subjective Date/Time Seen: 04/16/23 14:05 Principal diagnosis: Septic Olecranon Bursitis Interval history: Improving rapidly Exam Narrative: Swelling and redness better Objective Data Vital Signs Vital Signs: Vital Signs - 24 hr 04/15/23 14:42 04/15/23 19:32 04/16/23 04:30 Temperature 98.5 F 98.6 F 98.1 F Pulse Rate 66 70 61 Respiratory Rate 16 20 20 Blood Pressure 126/71 124/73 142/85 H Pulse Oximetry 97 97 97 Oxygen Delivery 04/16/23 08:35 04/16/23 14:02 Temperature 97.5 F L Pulse Rate 62 Respiratory Rate 16 Blood Pressure 136/79 Pulse Oximetry 99 Oxygen Delivery Room Air Intake/Output Intake/Output: Intake & Output 04/13/23 04/14/23 04/15/23 04/16/23 23:59 23:59 23:59 23:59 Intake Total 500 2451.75 2420 1190 Output Total 1000 Balance 500 1451.75 2420 1190 Meds/Results Medications: Active Medications Generic Name Dose Route Start Last Admin Trade Name Freq PRN Reason Stop Dose Admin Acetaminophen 1,000 mg 04/14/23 00:28 04/16/23 13:14 Acetaminophen 500 Mg Tablet PO 1,000 mg Q6H PRN Administration Mild Pain (1-3) or Fever Al Hydrox/Mg Hydrox/Simethicone 30 ml 04/14/23 00:28 Mag Hydrox/Al Hydrox/Simeth 30 Ml Udc PO Q6H PRN Indigestion Atorvastatin Calcium 20 mg 04/14/23 21:00 04/15/23 20:13 Atorvastatin 20 Mg Tablet PO 20 mg HS ALEA Administration Diphenhydramine HCl 25 mg 04/14/23 00:34 Diphenhydramine Hcl Inj 50 Mg/Ml Vial IV PUSH Q8H PRN Allergic Reaction Enoxaparin Sodium 40 mg 04/14/23 09:00 04/16/23 08:36 Enoxaparin 40 Mg/0.4 Ml Syringe SUB-Q 40 mg DAILY ALEA Administration Hydromorphone HCl 0.5 mg 04/14/23 00:28 Hydromorphone Hcl Inj (*Crx) 1 Mg/Ml Syr IV PUSH Q3H PRN Pain Rated 7-10 Vancomycin HCl 1,500 mg in 500 mls @ 250 mls/hr 04/16/23 02:00 04/16/23 13:17 Vancomycin 1,500 Mg/D5w 500 Ml IVPB 0 mls/hr Q12H ALEA Infusion Levofloxacin/Dextrose 750 mg in 150 mls @ 100 mls/hr 04/16/23 13:00 04/16/23 13:14 Levaquin 750 Mg/D5w 150 Ml IVPB 100 mls/hr Q24H ALEA Administration Ondansetron HCl 4 mg 04/14/23 00:28 Ondansetron Inj 4 Mg/2 Ml Vial IV PUSH Q6H PRN Nausea And Vomiting Polyethylene Glycol 17 gm 04/14/23 00:28 Polyethylene Glycol 3350 17 Gm Powd.Pack PO QAM PRN Constipation Tramadol HCl 50 mg 04/14/23 00:28 Tramadol Hcl (*Crx) 50 Mg Tablet PO Q6H PRN Pain Rated 4-6 Radiology Results: ITS Impressions Elbow X-Ray 04/13/23 16:22 IMPRESSION: 1. Worsened soft tissue swelling surrounding the elbow which could reflect cellulitis. 2. Small elbow joint effusion suggestive of occult fracture. Elbow MRI 04/14/23 09:33 IMPRESSION: 1. Partial tear of the proximal myotendinous junction of biceps muscle (grade 2 muscle strain). 2. No fracture. 3. Moderate elbow joint chondrosis. 4. Moderate olecranon bursitis. 5. Small elbow joint effusion. Head CT 04/14/23 16:40 IMPRESSION: No acute intracranial process. Abscess Drainage Ultrasound 04/14/23 17:09 IMPRESSION: 1. Septic left olecranon bursitis with successful placement of a percutaneous abscess drain into the infected bursa. 2. 2 mL of purulent appearing li-colored fluid was aspirated and sent to lab for Gram stain and cultures. Labs Labs: Laboratory Results - last 24 hr 04/16/23 04/16/23 00:12 05:42 WBC 5.7 RBC 3.82 L Hgb 11.6 L Hct 35.8 L MCV 93.7 MCH 30.4 MCHC 32.4 RDW 12.5 Plt Count 241 MPV 9.7 Immature Gran % (Auto) 1.4 H Neut % (Auto) 58.7 Lymph % (Auto) 18.8 [place] % (A
[2023-04-16 20:00] VITALS: BP 121/72; PULSE 71; RESP 15; TEMP 36.6; O2SAT 97
[2023-04-16] MEDS: ATORVASTATIN 20 MG TABLET PO (20:45)
[2023-04-17 04:31] VITALS: BP 113/76; PULSE 66; RESP 17; TEMP 37.1; O2SAT 96
--- NOTE | 2023-04-17 04:54 | PC.NURSE ---
Approx. before 0300 pt came out of room to speak for a moment. He hold me the cap of his drain became loose and popped off with most of the fluid coming out and landing on his bed. Earlier at time of assessment, there was approx 30 mLs of fluid, li/yellow in color. Asked pt if the amount noted earlier sounded about right and he said yes.
[2023-04-17 06:06] LABS: Basophils Percent Auto 0.6 % (0.2-1.2); Eosinophils Absolute Auto 0.5 K/mm3 (0-0.3); Eosinophils Percent Auto 7.7 % (0-4.4); Hematocrit 36.3 % (42.0-52.0); Hemoglobin 11.6 g/dL (14.0-18.0); Immature Granulocyte Absolute 0.14 K/mm3 (0.00-0.031); Immature Granulocyte Percent A 2.1 % (0-0.5); Lymphocytes Absolute Auto 1.11 K/mm3 (0.9-3.2); Mean Corpuscular Hemoglobin 30.3 pg (26-34); Mean Corpuscular Volume 94.8 fl (80-100); Mean Platelet Volume 9.8 fl (7.4-10.4); Monocytes Absolute Auto 0.6 K/mm3 (0.1-0.6); Neutrophils Absolute Auto 4.2 K/mm3 (1.3-6.7); Neutrophils Percent Auto 63.6 % (45.5-73.1); Platelet Count Result 279 k/mm3 (150-375); Red Blood Count 3.83 M/mm3 (4.6-6.20); Red Cell Distribution Width 12.6 % (11.5-14.5); White Blood Count 6.5 K/mm3 (4.5-10.0)
[2023-04-17 06:17] LABS: Alanine Aminotransferase 69 U/L (6-50); Albumin Level 3.7 g/dL (3.5-5.1); Alkaline Phosphatase 91 U/L (38-126); Anion Gap 10 mmol/L (8-16); Aspartate Amino Transferase 54 U/L (17-59); Bilirubin,Total 0.4 mg/dL (0.2-1.3); Blood Urea Nitrogen 14 mg/dL (9-20); Calcium 9.1 mg/dL (8.4-10.2); Carbon Dioxide 25 mmol/L (22-30); Chloride 102 mmol/L (98-107); Estimated CRCL calculation 71 ml/min; Estimated Glomerular Filt Rate > 60; Glucose 117 mg/dL (65-110); Magnesium 2.3 mg/dL (1.6-2.3); Potassium 4.2 mmol/L (3.4-5.0); Sodium 137 mmol/L (137-145)
[2023-04-17] MEDS: ENOXAPARIN 40 MG/0.4 ML SYRINGE SUB-Q (08:18)
[2023-04-17 09:33] VITALS: O2SAT 96
--- NOTE | 2023-04-17 11:15 | PM.PNORT ---
Progress Note: A&P Assessment and Plan (1) Septic olecranon bursitis of left elbow: Code(s): M71.122 - Other infective bursitis, left elbow Status: Acute Assessment and Plan: DOing well. Sensitivities in, sensitive to most antibiotics Subjective Subjective Date/Time Seen: 04/17/23 11:15 Principal diagnosis: Septic Olecranon Bursitis Interval history: Improving Exam Narrative: Redness and swelling diminishing Objective Data Vital Signs Vital Signs: Vital Signs - 24 hr 04/16/23 14:02 04/16/23 20:00 04/16/23 20:32 Temperature 97.5 F L 97.8 F Pulse Rate 62 71 Respiratory Rate 16 15 Blood Pressure 136/79 121/72 Pulse Oximetry 99 97 Oxygen Delivery Room Air 04/17/23 04:31 04/17/23 08:00 04/17/23 09:33 Temperature 98.8 F Pulse Rate 66 Respiratory Rate 17 Blood Pressure 113/76 Pulse Oximetry 96 96 Oxygen Delivery Room Air Room Air Intake/Output Intake/Output: Intake & Output 04/14/23 04/15/23 04/16/23 04/17/23 23:59 23:59 23:59 23:59 Intake Total 2451.75 2420 3090 1130 Output Total 1000 Balance 1451.75 2420 3090 1130 Meds/Results Medications: Active Medications Generic Name Dose Route Start Last Admin Trade Name Freq PRN Reason Stop Dose Admin Acetaminophen 1,000 mg 04/14/23 00:28 04/16/23 20:43 Acetaminophen 500 Mg Tablet PO 1,000 mg Q6H PRN Administration Mild Pain (1-3) or Fever Al Hydrox/Mg Hydrox/Simethicone 30 ml 04/14/23 00:28 Mag Hydrox/Al Hydrox/Simeth 30 Ml Udc PO Q6H PRN Indigestion Atorvastatin Calcium 20 mg 04/14/23 21:00 04/16/23 20:45 Atorvastatin 20 Mg Tablet PO 20 mg HS ALEA Administration Diphenhydramine HCl 25 mg 04/14/23 00:34 Diphenhydramine Hcl Inj 50 Mg/Ml Vial IV PUSH Q8H PRN Allergic Reaction Enoxaparin Sodium 40 mg 04/14/23 09:00 04/17/23 08:18 Enoxaparin 40 Mg/0.4 Ml Syringe SUB-Q 40 mg DAILY ALEA Administration Hydromorphone HCl 0.5 mg 04/14/23 00:28 Hydromorphone Hcl Inj (*Crx) 1 Mg/Ml Syr IV PUSH Q3H PRN Pain Rated 7-10 Vancomycin HCl 1,500 mg in 500 mls @ 250 mls/hr 04/16/23 02:00 04/17/23 03:02 Vancomycin 1,500 Mg/D5w 500 Ml IVPB Infused Q12H ALEA Infusion Levofloxacin/Dextrose 750 mg in 150 mls @ 100 mls/hr 04/16/23 13:00 04/16/23 14:50 Levaquin 750 Mg/D5w 150 Ml IVPB Infused Q24H ALEA Infusion Ondansetron HCl 4 mg 04/14/23 00:28 Ondansetron Inj 4 Mg/2 Ml Vial IV PUSH Q6H PRN Nausea And Vomiting Polyethylene Glycol 17 gm 04/14/23 00:28 Polyethylene Glycol 3350 17 Gm Powd.Pack PO QAM PRN Constipation Tramadol HCl 50 mg 04/14/23 00:28 Tramadol Hcl (*Crx) 50 Mg Tablet PO Q6H PRN Pain Rated 4-6 Radiology Results: ITS Impressions Elbow X-Ray 04/13/23 16:22 IMPRESSION: 1. Worsened soft tissue swelling surrounding the elbow which could reflect cellulitis. 2. Small elbow joint effusion suggestive of occult fracture. Elbow MRI 04/14/23 09:33 IMPRESSION: 1. Partial tear of the proximal myotendinous junction of biceps muscle (grade 2 muscle strain). 2. No fracture. 3. Moderate elbow joint chondrosis. 4. Moderate olecranon bursitis. 5. Small elbow joint effusion. Head CT 04/14/23 16:40 IMPRESSION: No acute intracranial process. Abscess Drainage Ultrasound 04/14/23 17:09 IMPRESSION: 1. Septic left olecranon bursitis with successful placement of a percutaneous abscess drain into the infected bursa. 2. 2 mL of purulent appearing li-colored fluid was aspirated and sent to lab for Gram stain and cultures. Labs Labs: Laboratory Results - last 24 hr 04/17/23 05:18 WBC 6.5 RBC 3.83 L Hgb 11.6 L Hct 36.3 L MCV 94.8 MCH 30.3 MCHC 32.0 RDW 12.6 Plt Count 279 MPV 9.8 Immature Gran % (Auto) 2.1 H Neut % (Auto) 63.6 Lymph % (Auto) 17.0 L [place] % (Auto) 9.0 H Eos % (Auto) 7.7 H Baso % (Auto
[2023-04-17] MEDS: ACETAMINOPHEN 500 MG TABLET 1000 MG PO (12:39)
[2023-04-17] MEDS: levoFLOXacin 750 MG/D5W 150 ML 750 MG/150 ML BAG 100 MG IVPB (12:40)
[2023-04-17 13:36] LABS: Vancomycin Trough 15.2 ug/mL (10.0-20.0)
--- NOTE | 2023-04-17 13:54 | PM.IMPN ---
Progress Note: A&P Assessment and Plan (1) Elbow laceration: Qualifiers: Encounter type: subsequent encounter Laterality: left Qualified Code(s): S51.012D - Laceration without foreign body of left elbow, subsequent encounter Code(s): S51.019A - Laceration without foreign body of unspecified elbow, initial encounter Status: Acute Assessment and Plan: 04/10 fall from ladder suffering left elbow laceration. Initially cleaned and sutured closed in the ED on 04/10. D/c home with keflex. Now with concerns for septic olecranon bursitis and cellulitis. On Levaquin and Vancomycin aerobic wound culture positive for pansensitive E coli, anerobic positive for GNR and GPR, awaiting finalizaation continue wound drain per ortho Pain medication with Tylenol, tramadol and prn Dilaudid ortho following hoping that culture will finalize tomorrow and abx adjusted to oral for a total of 14 days. (2) Cellulitis and abscess of other specified site: Code(s): L03.818 - Cellulitis of other sites; L02.818 - Cutaneous abscess of other sites Status: Acute Assessment and Plan: see 1 (3) Low back pain: Qualifiers: Chronicity: unspecified Back pain laterality: unspecified Sciatica presence: unspecified whether sciatica present Qualified Code(s): M54.50 - Low back pain, unspecified Code(s): M54.50 - Low back pain, unspecified Status: Acute Assessment and Plan: Chronic and just recently had back surgery. No complaints at this time. Even after his fall his back has not been bothering him. Plan Feeding: regular Analgesia:Tylenol, tramadol, Dilaudid Thromboembolic prophylaxis: Lovenox Ulcer prophylaxis: na Glycemic control: na Bowel regimen: miralax prn Lines: PIV Antibiotics:Vancomycin and Levaquin Disposition: Home when clinically able. Subjective Date/time seen: 04/17/23 13:54 Interval history: Aerobic culture positive for pansensitive E coli Awaiting Anerobic culture finalization will continue current abx, hopefully discharge on total of 14 days Po abx on culture finaliazation Review of Systems Review of Systems: fall, trauma to the L ELBOW, LACERATION WOUND, SWELLING REDNESS, TENDERNESS, l ELBOW All systems reviewed & are unremarkable except as noted in HPI and below Constitutional: Constitutional: Reports chills, Denies fatigue, Reports fever(s), Reports malaise, Reports night sweats, Reports poor appetite and Reports weakness Eyes: Eyes: Denies change in vision ENT: Denies dysphagia, Denies vertigo, Denies dizziness and Denies odynophagia Cardiovascular: Cardiovascular: Denies chest pain, Denies radiating jaw, neck or arm pain, Denies palpitations and Denies dyspnea Respiratory: Respiratory: Denies chest congestion and Denies dyspnea Gastrointestinal: Gastrointestinal: Denies abdominal pain, Denies dysphagia, Denies dyspepsia, Denies heartburn, Denies diarrhea, Denies nausea, Denies odynophagia and Denies vomiting Genitourinary: Genitourinary: Denies dysuria and Denies flank pain Musculoskeletal: Musculoskeletal: Reports deformity, Reports arthralgias (L elbow), Reports joint swelling and Reports limited range of motion Integumentary/Breasts: Skin/Breast: Reports swelling, Reports erythema, Reports skin swelling and Reports other (L elbow laceration wound) Neurologic: Denies vertigo, Denies dizziness, Denies focal weakness, Denies Sensory deficit (Neuro) and Reports weakness Psychiatric: Psychiatric: Reports no additional psychiatric complaints and Reports as per HPI Endocrine: Endocrine: Denies cold intolerance, Denies fatigue, Denies flushing, Denies heat intolerance, Denies polyphagia, Denies polydipsia, Denies polyuria and Denies palpitations Hematologic/Lymphatic: Hematologic/Lymphatic: Reports no additional hematologic/lymphatic complaints and Reports as per HPI Allergic/Immunologic: Allergic/Immunologic:
[2023-04-17 14:38] VITALS: BP 116/70; PULSE 72; RESP 16; TEMP 36.8; O2SAT 96
[2023-04-17] MEDS: ATORVASTATIN 20 MG TABLET PO (20:51)
[2023-04-17 21:23] VITALS: BP 138/81; PULSE 66; RESP 16; TEMP 36.7; O2SAT 99
[2023-04-18 03:56] VITALS: BP 108/61; PULSE 68; RESP 12; TEMP 37.2; O2SAT 100
[2023-04-18 06:15] LABS: Basophils Absolute Auto 0.1 K/mm3 (0.0-0.1); Basophils Percent Auto 0.7 % (0.2-1.2); Eosinophils Absolute Auto 0.5 K/mm3 (0-0.3); Eosinophils Percent Auto 6.9 % (0-4.4); Hemoglobin 12.1 g/dL (14.0-18.0); Immature Granulocyte Percent A 2.8 % (0-0.5); Lymphocytes Percent Auto 16.9 % (18.3-44.2); Mean Corpuscular HGB Conc 31.8 g/dl (32-36); Mean Corpuscular Hemoglobin 30.4 pg (26-34); Mean Corpuscular Volume 95.5 fl (80-100); Mean Platelet Volume 9.6 fl (7.4-10.4); Monocytes Absolute Auto 0.8 K/mm3 (0.1-0.6); Monocytes Percent Auto 10.8 % (2.6-8.5); Neutrophils Absolute Auto 4.4 K/mm3 (1.3-6.7); Neutrophils Percent Auto 61.9 % (45.5-73.1); Platelet Count Result 319 k/mm3 (150-375); Red Blood Count 3.98 M/mm3 (4.6-6.20); Red Cell Distribution Width 12.7 % (11.5-14.5); White Blood Count 7.1 K/mm3 (4.5-10.0)
[2023-04-18 06:19] LABS: Alanine Aminotransferase 100 U/L (6-50); Albumin Level 3.9 g/dL (3.5-5.1); Alkaline Phosphatase 91 U/L (38-126); Anion Gap 9 mmol/L (8-16); Aspartate Amino Transferase 73 U/L (17-59); Bilirubin,Total 0.5 mg/dL (0.2-1.3); Blood Urea Nitrogen 18 mg/dL (9-20); Calcium 9.2 mg/dL (8.4-10.2); Carbon Dioxide 26 mmol/L (22-30); Chloride 103 mmol/L (98-107); Estimated CRCL calculation 60 ml/min; Estimated Glomerular Filt Rate > 60; Glucose 118 mg/dL (65-110); Magnesium 2.4 mg/dL (1.6-2.3); Potassium 4.5 mmol/L (3.4-5.0); Sodium 138 mmol/L (137-145)
[2023-04-18] MEDS: ENOXAPARIN 40 MG/0.4 ML SYRINGE SUB-Q (08:03)
--- NOTE | 2023-04-18 12:32 | PM.DS ---
DS: Admitting Diagnosis Discharge Date 04/18/2023 Admitting Diagnosis Left elbow laceration, low back pain, GERD without esophagitis, cellulitis and abscess left elbow DS: Discharge Diagnosis Discharge Diagnosis (1) Septic olecranon bursitis of left elbow: Code(s): M71.122 - Other infective bursitis, left elbow Status: Acute (2) Elbow laceration: Qualifiers: Encounter type: subsequent encounter Laterality: left Qualified Code(s): S51.012D - Laceration without foreign body of left elbow, subsequent encounter Code(s): S51.019A - Laceration without foreign body of unspecified elbow, initial encounter Status: Acute (3) Cellulitis and abscess of other specified site: Code(s): L03.818 - Cellulitis of other sites; L02.818 - Cutaneous abscess of other sites Status: Acute (4) Low back pain: Qualifiers: Chronicity: unspecified Back pain laterality: unspecified Sciatica presence: unspecified whether sciatica present Qualified Code(s): M54.50 - Low back pain, unspecified Code(s): M54.50 - Low back pain, unspecified Status: Acute DS: Summary Hospital Course Hospital Course: 04/14:? Very pleasant 67 year old male with a PMH of hyperlipidemia and recent back surgery approximately 6 weeks ago. He presented to the ED on 04/13 from his PCP's office for concerns of cellulitis. On Thursday, 04/10 he was cleaning out his gutters when he fell approximately 7-10 feet from his ladder striking his back, head, and left arm on a landscaping rock. He denies LOC at the time of the fall. He was seen in the ED where his left arm laceration was cleansed and closed with sutures. No fractures seen on imaging. He was discharged home with Keflex. He says that over the next couple of days he was having headaches, dizziness, and difficulty with his vision. He assumed these symptoms were from a possible concussion from his fall. These symptoms have since resolved. He started having fevers on Thursday evening. Tmax of 102.5. He was treating with Tylenol. On Thursday he went to his PCP's office to be seen as he was having increased drainage and recurrent fevers and he was asked to come to the ED for evaluation. In the ED his WBC was 9.2, neutrophils 73.5%, and temperature 100.2. Elbow xray showed worsened soft tissue swelling and small joint effusion suggestive of occult fracture. Orthopedics was consulted and recommended an MRI which shows partial tear of the proximal myotendinous junction of the biceps, no fracture, moderate joint chondrosis, moderate olecranon bursitis, and small joint effusion. Orthopedics placed him on IV vancomycin and will see if IR can drain the effusion. Should his clinical picture not improve with the vancomycin then he will go for surgery for a wound wash out. Today he is feeling okay. He has pain with movement but no pain at rest with elevation. The arm is tender with gentle manipulation and there is excessive swelling of +3-4 edema present. Neurovascularly still intact but his fingers are slightly pale compared to the right arm. He denies numbness, tingling at this time. I urged him to notify staff should he start to have sensation changes as he is at risk for compartment syndrome. He is managing his pain with Tylenol only at this time. 04/15:? Patient reports he has a rash on his back that itches but that his elbow/arm seems to be improving.? Drain in place with yellowish drainage.? Antibiotics changed to Rocephin and vancomycin after discussion with [facility] and Dr. Altamirano.? No other changes. 04/16: wound culture positive for E coli, awaiting sensitivity, noted rash on the back since starting Rocephin. Changed to Levaquin today. 04/17: Aerobic culture positive for pansensitive E coli Awaiting Anaerobic culture finalization will continue current abx, hopefully discharge on total of 14 days Po abx on culture finalization Perc drain removed in anticipation discharge 04/18: Patient
[2023-04-18] MEDS: levoFLOXacin 750 MG/D5W 150 ML 750 MG/150 ML BAG 100 MG IVPB (12:50)
[2023-04-18 14:33] VITALS: BP 127/83; PULSE 70; RESP 16; TEMP 36.6; O2SAT 100
--- NOTE | 2023-04-21 08:56 | PC.NURSE ---
Anaerobic wound culture growing E. Coli. Pt dc on Levaquin which is susceptible.
== END 2023-04-18 15:45 | disposition home or self-care (01) | DRG 558 ==
LOC: ANHED 15:49 → ANH2MED 18:04
PROVIDERS: Internal Medicine; Nurse Practitioner Acute Care; Orthopaedic Surgery; Admitting Provider Student in an Organized Health Care Education/Training Program; Emergency Provider Student in an Organized Health Care Education/Training Program; PCP Family Medicine; Visit Provider Nurse Practitioner
DX: M71.022 Abscess of bursa, left elbow (principal); L03.114 Cellulitis of left upper limb; B96.20 Unspecified Escherichia coli [E. coli] as the cause of diseases classified elsewhere; M71.122 Other infective bursitis, left elbow; L27.0 Generalized skin eruption due to drugs and medicaments taken internally; T36.1X5A Adverse effect of cephalosporins and other beta-lactam antibiotics, initial encounter; E87.6 Hypokalemia; E78.5 Hyperlipidemia, unspecified; K21.9 Gastro-esophageal reflux disease without esophagitis; M54.50 Low back pain, unspecified; S51.012D Laceration without foreign body of left elbow, subsequent encounter; W11.XXXD Fall on and from ladder, subsequent encounter
CPT/HCPCS: 10160; 36415; 70450; 71101; 73080; 73221; 80048; 80053; 80170; 80202; 82565; 83605; 83690; 83735; 84484; 85025; 85610; 85730; 86140; 87040; 87070; 87075; 87077; 87186; 87205; 96374; 99213; 99214; 99285; A9270; G0463; J0696; J1580; J1650; J1956; J2270; J3370

== ENCOUNTER 2023-10-25 10:20 | Emergency (ER) | payer OTHER, MEDICARE, SELFPAY ==
--- NOTE | ~2023-10-25 | XR_ITS ---
XR foot RT min 3V 10/25/2023 10:46 Indication: Right fifth toe pain Procedure: 4 views right foot Comparison: No prior studies for comparison. Findings: There are mildly displaced fractures of the fifth proximal phalangeal neck and the fifth di stal phalanx. Mild soft tissue swelling. No foreign bodies. No intra-articular extension. Impression: 1: Mildly displaced fractures of the right fifth proximal and distal phalanges. Reviewed, dictated and finalized at location B. Impression: 1: Mildly displaced fractures of the right fifth proximal and distal phalanges.
--- NOTE | 2023-10-25 10:31 | ED.GENADULT ---
HPI - General Adult General Chief complaint: Extremity Injury, Lower Stated complaint: R FOOT INJURY Time Seen by Provider: 10/25/23 10:31 Source: patient Mode of arrival: ambulatory Limitations: no limitations History of Present Illness HPI narrative: 68-year-old male patient presents to the [facility] with complaints right foot pain. Patient states he woke up this morning about 430 in the morning with a charley horse and hit his right pinky toe on to a doorjamb and then also hit the right pinky toe/ foot on a lamp. Patient states he has been ambulating on the foot and did take some Tylenol this morning for pain. Patient states he went to [employer] this morning and after talking to some friends assigned to come and get it x-rayed today. Related Data Home Medications Medication Instructions Recorded Confirmed cholecalciferol (vitamin D3) 25 25 mcg PO DAILY 09/19/22 10/25/23 mcg (1,000 unit) capsule magnesium 250 mg tablet 250 mg PO HS 09/19/22 10/25/23 multivitamin 1 tablet PO DAILY 09/19/22 10/25/23 atorvastatin 20 mg tablet 20 mg PO HS 04/13/23 10/25/23 Allergies Allergy/AdvReac Type Severity Reaction Status Date / Time acromycin Allergy Mild Rash Uncoded 10/25/23 10:32 Review of Systems Review of Systems: CONSTITUTIONAL: Denies fever, chills, or sweats. EYES: Denies visual changes, redness, or discharge. ENT: Denies rhinorrhea, congestion, sore throat, or otalgia. CARDIOVASCULAR: Denies chest pain, palpitations, or edema. RESPIRATORY: Denies cough or dyspnea. GASTROINTESTINAL: Denies abdominal pain, nausea, vomiting, or diarrhea. GENITOURINARY: Denies dysuria or hematuria. SKIN: Denies rash or itching. MUSCULOSKELETAL: Denies back pain, joint pain, or myalgia. Positive right foot pain NEUROLOGIC: Denies headache, numbness, or weakness. PSYCHIATRIC: Denies anxiety or depression. [facility] Past Medical History Medical History Actinic keratosis Biceps muscle tear Elbow laceration Fracture of radial head, left, closed Gastro-esophageal reflux disease without esophagitis Septic olecranon bursitis of left elbow SLAP lesion of shoulder Tinea cruris Surgical History Surgical History H/O discectomy (~1999) 1999 ( dr. aan stephen) History of back surgery discectomy and decompression-Dr. Macias 01/12/23 History of sinus surgery History of tonsillectomy Family History Family History Sibling Diabetes mellitus Family history of obesity Mother Patient's mother is in good health Father Patient's father is , Onset Age: 40 Family history of elevated blood lipids Family history of thoracic aortic aneurysm Social History Social History Social History: Enjoys playing bridge (card game) Smoking status: Never smoker Alcohol intake: current Alcohol use details: maybe once ayear Substance use: never Substance use type: does not use Do You Feel Safe in your Home?: Yes Lack of Transportation: No Lack of Food: Never True Current Housing: I Have Housing Concerned About Future Housing: No Difficulty Paying Gas/Electric Bills: No Difficulty Paying for Meds: No Currently Unemployed: No Education: Master's Degree or Higher Difficulty w/ Childcare or Family Care: No Living arrangements: with family Occupation/Education: occupation 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 There is no relevant family history pertinent to the presenting complaint. Exam Narrative: GENERAL: Well-appearing, well-nourished, and in no acute distress. HEAD: Normocephalic, atraumatic. EYES: PERRLA and EOMI. ENT: Aracelis cannon
[2023-10-25 10:35] VITALS: BP 138/80; PULSE 68; RESP 16; TEMP 36.4; O2SAT 97
== END 2023-10-25 11:28 | disposition home or self-care (01) ==
PROVIDERS: Emergency Provider Nurse Practitioner Family; PCP Family Medicine
DX: S92.511A Displaced fracture of proximal phalanx of right lesser toe(s), initial encounter for closed fracture (principal); W22.09XA Striking against other stationary object, initial encounter; K21.9 Gastro-esophageal reflux disease without esophagitis
CPT/HCPCS: 73630; 99214; G0463

== ENCOUNTER 2024-02-27 17:58 | Emergency (ER) | payer OTHER, MEDICARE, SELFPAY ==
[2024-02-27 18:18] VITALS: BP 144/93; PULSE 89; RESP 16; TEMP 36.5; O2SAT 97
--- NOTE | 2024-02-27 18:18 | ED.GENADULT ---
HPI - General Adult General Chief complaint: Wound/Laceration Stated complaint: had surg thursday, area is swollen/weeping Time Seen by Provider: 02/27/24 18:18 Source: patient, RN notes reviewed and old records reviewed Mode of arrival: ambulatory Limitations: no limitations History of Present Illness HPI narrative: 68-year-old [facility] to [facility] for complaint of postsurgical infection. 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 Patient denies fever, body aches, chills, nausea. Patient resting comfortably in exam room in no acute distress. Related Data Home Medications Medication Instructions Recorded Confirmed cholecalciferol (vitamin D3) 25 25 mcg PO DAILY 09/19/22 02/27/24 mcg (1,000 unit) capsule magnesium 250 mg tablet 250 mg PO HS 09/19/22 02/27/24 multivitamin 1 tablet PO DAILY 09/19/22 02/27/24 Allergies Allergy/AdvReac Type Severity Reaction Status Date / Time acromycin Allergy Mild Rash Uncoded 02/27/24 19:18 Review of Systems Review of Systems: All systems reviewed & are unremarkable except as noted in HPI and below Constitutional: Constitutional: Reports no additional constitutional complaints Eyes: Eyes: Reports no additional eye complaints ENT: Reports system reviewed and no additional complaints, except as documented Cardiovascular: Cardiovascular: Reports no additional cardiovascular complaints, Denies chest pain and Denies dyspnea Respiratory: Respiratory: Reports no additional respiratory complaints, Denies cough and Denies dyspnea Musculoskeletal: Musculoskeletal: Reports no additional musculoskeletal complaints Integumentary/Breasts: Skin/Breast: Reports as per HPI, Reports erythema, Reports skin swelling and Reports wounds ( Postsurgical) Neurologic: Reports system reviewed and no additional complaints, except as documented Psychiatric: Psychiatric: Reports no additional psychiatric complaints [facility] Past Medical History Medical History Actinic keratosis Biceps muscle tear Elbow laceration Fracture of radial head, left, closed Gastro-esophageal reflux disease without esophagitis Septic olecranon bursitis of left elbow SLAP lesion of shoulder Tinea cruris Surgical History Surgical History H/O discectomy (~1999) 1999 ( dr. ana stephen) History of back surgery discectomy and decompression-Dr. Macias 01/12/23 History of sinus surgery History of tonsillectomy Family History Family History Sibling Diabetes mellitus Family history of obesity Mother Patient's mother is in good health Father Patient's father is , Onset Age: 40 Family history of elevated blood lipids Family history of thoracic aortic aneurysm Social History Social History Social History: Enjoys playing bridge (card game) Smoking status: Never smoker Alcohol intake: current Alcohol use details: maybe once ayear Substance use: never Substance use type: does not use Do You Feel Safe in your Home?: Yes Lack of Transportation: No Lack of Food: Never True Current Housing: I Have Housing Concerned About Future Housing: No Difficulty Paying Gas/Electric Bills: No Difficulty Paying for Meds: No Currently Unemployed: No Education: Master's Degree or Higher Difficulty w/ Childcare or Family Care: No Living arrangements: with family Occupation/Education: occupation 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 There is no relevant family history pertinent to the delmi
== END 2024-02-27 18:39 | disposition short-term general hospital (02) ==
LOC: EXPGOSH 18:04
PROVIDERS: Emergency Provider Nurse Practitioner Family; PCP Family Medicine
DX: T81.41XA Infection following a procedure, superficial incisional surgical site, initial encounter (principal)
CPT/HCPCS: 99212; G0463

== ENCOUNTER 2024-02-27 19:03 | Emergency (ER) | payer OTHER, MEDICARE, SELFPAY ==
[2024-02-27 19:16] VITALS: BP 149/90; PULSE 84; RESP 17; TEMP 36.7; O2SAT 97
--- NOTE | 2024-02-27 20:03 | ED.WOUNDLAC ---
HPI - Wound/Laceration General Chief Complaint: Wound/Laceration Stated Complaint: wound Time Seen by Provider: 02/27/24 19:14 History of Present Illness HPI narrative: 68-year-old male with a history of hyperlipidemia presents to the emergency department for an infected wound. 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 States yesterday he noticed some redness around this morning woke up with drainage. Went to urgent care and was sent to the ED for further evaluation. He denies fever, nausea or vomiting. His lang interpreter is at [facility] in [place], [place]. Related Data Home Medications Medication Instructions Recorded Confirmed cholecalciferol (vitamin D3) 25 25 mcg PO DAILY 09/19/22 02/27/24 mcg (1,000 unit) capsule magnesium 250 mg tablet 250 mg PO HS 09/19/22 02/27/24 multivitamin 1 tablet PO DAILY 09/19/22 02/27/24 Allergies Allergy/AdvReac Type Severity Reaction Status Date / Time acromycin Allergy Mild Rash Uncoded 02/27/24 19:18 Review of Systems Review of Systems: All systems reviewed & are unremarkable except as noted in HPI and below PMFSH Past Medical History Medical History Actinic keratosis Biceps muscle tear Elbow laceration Fracture of radial head, left, closed Gastro-esophageal reflux disease without esophagitis Septic olecranon bursitis of left elbow SLAP lesion of shoulder Tinea cruris Surgical History Surgical History H/O discectomy (~1999) 1999 ( dr. ana stephen) History of back surgery discectomy and decompression-Dr. Macias 01/12/23 History of sinus surgery History of tonsillectomy Family History Family History Sibling Diabetes mellitus Family history of obesity Mother Patient's mother is in good health Father Patient's father is , Onset Age: 40 Family history of elevated blood lipids Family history of thoracic aortic aneurysm Social History Social History Social History: Enjoys playing bridge (card game) Smoking status: Never smoker Alcohol intake: current Alcohol use details: maybe once ayear Substance use: never Substance use type: does not use Do You Feel Safe in your Home?: Yes Lack of Transportation: No Lack of Food: Never True Current Housing: I Have Housing Concerned About Future Housing: No Difficulty Paying Gas/Electric Bills: No Difficulty Paying for Meds: No Currently Unemployed: No Education: Master's Degree or Higher Difficulty w/ Childcare or Family Care: No Living arrangements: with family Occupation/Education: occupation 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 HEAD: Normocephalic, atraumatic. ENT: Nares clear, no rhinorrhea or epistaxis. Mucous membranes moist. NECK: Supple. CHEST: Clear to auscultation. No respiratory distress. HEART: Regular rate and rhythm. No murmur heard. Normal peripheral pulses. EXTREMITIES: Normal range of motion. No edema. SKIN: 3cm linear Incision over the proximal sternum with [address], actively draining blood and purulence. There is surrounding blanching erythema and warmth measuring approximately 1 cm from incision site. No crepitus, fluctuance, induration. NEURO: No focal deficits. Alert and oriented x3 Course Vital Signs Vital signs: Vital Signs Temperature 98.1 F 02/27/24 19:16 Pulse Rate 84 02/27/24 19:16 Respiratory Rate 17 02/27/24 19:16 Blood Pressure 149/90 H 02/27/24 19:16 Pulse Oximetry 97 02/27/24 19:16 Oxygen Delivery Room Air 02/27/24 19:16 Temperature 98.1 F 02/27/24 19:16 Pulse Rate 84
[2024-02-27] MEDS: DOXYCYCLINE HYCLATE 100 MG TABLET PO (20:26)
== END 2024-02-27 20:34 | disposition home or self-care (01) ==
PROVIDERS: Emergency Provider Physician Assistant; PCP Family Medicine
DX: L03.313 Cellulitis of chest wall (principal); T81.41XA Infection following a procedure, superficial incisional surgical site, initial encounter; Y83.8 Other surgical procedures as the cause of abnormal reaction of the patient, or of later complication, without mention of misadventure at the time of the procedure; Z85.828 Personal history of other malignant neoplasm of skin
CPT/HCPCS: 99283; A9270

== ENCOUNTER 2024-05-03 01:15 | Day surgery (SDC) | payer OTHER, MEDICARE, SELFPAY ==
[2024-04-18 11:09] VITALS: BMI 27.8
[2024-05-03 11:39] VITALS: BP 122/79; PULSE 56; RESP 16; TEMP 36.2; O2SAT 100; BMI 26.8
[2024-05-03] MEDS: LACTATED RINGERS 1,000 ML 150 ML IV CONT (11:54)
--- NOTE | 2024-05-03 12:01 | WPDANESEPPF ---
Anes - Initial Pre Proc Eval Procedure: Operation Date: 05/03/24 12:30 Proposed Procedures p Colonoscopy - Crispin Watson MD Date/Time: 05/03/24 12:01 Surgeon: Crispin Watson MD Pre Op Diagnosis: personal hx colon polyps Patient Data Age: 68 Gender: M Height: 1.83 m Weight: 89.7 kg Last Vital Signs Temp 36.2 C L 05/03/24 11:39 Pulse 56 L 05/03/24 11:39 Resp 16 05/03/24 11:39 BP 122/79 05/03/24 11:39 Pulse Ox 100 05/03/24 11:39 O2 Del Method Room Air 05/03/24 11:39 Allergies Allergy/AdvReac Type Severity Reaction Status Date / Time acromycin Allergy Mild Rash Uncoded 05/03/24 11:37 Home Medications ?Medication ?Instructions ?Recorded ?Confirmed ?Type cholecalciferol (vitamin D3) 25 25 mcg PO DAILY 09/19/22 05/03/24 History mcg (1,000 unit) capsule magnesium 250 mg tablet 250 mg PO HS 09/19/22 05/03/24 History multivitamin 1 tablet PO DAILY 09/19/22 05/03/24 History atorvastatin 20 mg tablet 20 mg PO HS #90 tabs 12/29/23 05/03/24 Rx sildenafil 100 mg tablet (Viagra) 100 mg PO DAILY PRN sexual 01/05/24 04/18/24 Rx activity #10 tabs Patient hx anesthesia problems: none Family hx anesthesia problems: none Results Review: All pre-operative results and documents have been reviewed as part of the pre-operative evaluation. PENDING SALE TO [facility] Past Medical History Medical History Biceps muscle tear Septic olecranon bursitis of left elbow Fracture of radial head, left, closed Elbow laceration Tinea cruris SLAP lesion of shoulder Actinic keratosis Gastro-esophageal reflux disease without esophagitis Surgical History Surgical History History of tonsillectomy History of sinus surgery History of back surgery discectomy and decompression-Dr. Macias 01/12/23 H/O discectomy (~1999) 1999 ( dr. ana stephen) Family History Family History Sibling Diabetes mellitus Family history of obesity Mother Patient's mother is in good health Father Patient's father is , Onset Age: 40 Family history of elevated blood lipids Family history of thoracic aortic aneurysm Social History Social History Social History: Enjoys playing bridge (card game) Smoking status: Never smoker Alcohol intake: current Drinks per week: 1 Alcohol use details: maybe once ayear Substance use: never Substance use type: does not use Do You Feel Safe in your Home?: Yes Lack of Transportation: No Lack of Food: Never True Current Housing: I Have Housing Concerned About Future Housing: No Difficulty Paying Gas/Electric Bills: No Difficulty Paying for Meds: No Currently Unemployed: No Education: Master's Degree or Higher Difficulty w/ Childcare or Family Care: No Living arrangements: with family Occupation/Education: occupation 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 Informed Consent: The patient's anesthetic plan and its attendant risks and benefits were discussed with the patient/family/POA. Questions were solicited and answers provided to the satisfaction of the patient/family/POA.
--- NOTE | 2024-05-03 12:18 | P.HP_ITS ---
History of Present Illness History of Present Illness Consent: Risks, benefits, and alternatives have been discussed and questions answered. Patient agrees to proceed with procedure. Chief complaint: personal hx colon polyps Narrative: Nirav Gonzáles is a 68 year old male with colon polyp in 2019 Review of Systems Review of Systems: All systems reviewed & are unremarkable except as noted in HPI and below PMFSH Past Medical History Medical History Biceps muscle tear Septic olecranon bursitis of left elbow Fracture of radial head, left, closed Elbow laceration Tinea cruris SLAP lesion of shoulder Actinic keratosis Gastro-esophageal reflux disease without esophagitis Surgical History Surgical History History of tonsillectomy History of sinus surgery History of back surgery discectomy and decompression-Dr. Macias 01/12/23 H/O discectomy (~1999) 1999 ( dr. ana stephen) Family History Family History Sibling Diabetes mellitus Family history of obesity Mother Patient's mother is in good health Father Patient's father is , Onset Age: 40 Family history of elevated blood lipids Family history of thoracic aortic aneurysm Social History Social History Social History: Enjoys playing bridge (card game) Smoking status: Never smoker Alcohol intake: current Drinks per week: 1 Alcohol use details: maybe once ayear Substance use: never Substance use type: does not use Do You Feel Safe in your Home?: Yes Lack of Transportation: No Lack of Food: Never True Current Housing: I Have Housing Concerned About Future Housing: No Difficulty Paying Gas/Electric Bills: No Difficulty Paying for Meds: No Currently Unemployed: No Education: Master's Degree or Higher Difficulty w/ Childcare or Family Care: No Living arrangements: with family Occupation/Education: occupation 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 Spiritual care concerns: No Meds Home Medications and Allergies Home Medications ?Medication ?Instructions ?Recorded ?Confirmed ?Type cholecalciferol (vitamin D3) 25 25 mcg PO DAILY 09/19/22 05/03/24 History mcg (1,000 unit) capsule magnesium 250 mg tablet 250 mg PO HS 09/19/22 05/03/24 History multivitamin 1 tablet PO DAILY 09/19/22 05/03/24 History atorvastatin 20 mg tablet 20 mg PO HS #90 tabs 12/29/23 05/03/24 Rx sildenafil 100 mg tablet (Viagra) 100 mg PO DAILY PRN sexual 01/05/24 04/18/24 Rx activity #10 tabs Allergies Allergy/AdvReac Type Severity Reaction Status Date / Time acromycin Allergy Mild Rash Uncoded 05/03/24 11:37 Vital Signs Vital Signs - 24 hr 05/03/24 11:39 Temperature 97.2 F L Pulse Rate 56 L Respiratory Rate 16 Blood Pressure 122/79 Pulse Oximetry 100 Oxygen Delivery Room Air Exam Const: General: comfortable and no acute distress HENMT: Face/Nose/Sinus: Normal nares present Eyes: General: appearance normal, both eyes and all related structures Neck: Neck: no JVD Resp: Auscultation: clear to auscultation bilaterally Cardio: Rate: regular rate Rhythm: regular rhythm GI: Inspection: non-distended GI Palp: Yes Soft to palpation Skin: General skin exam: normal color Neuro: General: gait normal Speech: normal speech Extrem: General: normal to inspection Psych: Mental Status: mental status grossly normal Assessment and Plan Assessment and plan (1) Personal history of colonic polyps: Code(s): Z86.010 - Personal history of colon polyps Status: Acute Assessment and Plan: colonoscopy
[2024-05-03 12:32] VITALS: BP 100/64; PULSE 59; RESP 16; O2SAT 99
[2024-05-03 12:42] VITALS: BP 86/59; PULSE 55; RESP 16; O2SAT 97
[2024-05-03 12:50] VITALS: BP 115/67; PULSE 52; RESP 16; O2SAT 98
== END 2024-05-03 12:59 | disposition home or self-care (01) ==
PROVIDERS: PCP Family Medicine; Referring Provider Student in an Organized Health Care Education/Training Program; Visit Provider Internal Medicine Gastroenterology
PROC: 0DJD8ZZ Inspection of Lower Intestinal Tract, Via Natural or Artificial Opening Endoscopic (ICD-10-PCS; CPT 45378; principal; 2024-05-03 12:30)
DX: Z12.11 Encounter for screening for malignant neoplasm of colon (principal); K64.8 Other hemorrhoids; K21.9 Gastro-esophageal reflux disease without esophagitis; Z98.890 Other specified postprocedural states; Z98.1 Arthrodesis status; Z86.0100 Personal history of colon polyps, unspecified; Z82.49 Family history of ischemic heart disease and other diseases of the circulatory system
CPT/HCPCS: 45378; J2704; J7120

== ENCOUNTER 2024-06-16 11:48 | Outpatient (CLI) | payer OTHER, MEDICARE, SELFPAY ==
--- NOTE | ~2024-06-16 | XR_ITS ---
Right Knee Technique: AP, lateral, and sunrise views were obtained. Clinical History: Pain Findings: No fracture or dislocation is seen. Osseous alignment is anatomic. Joint spaces are preserv ed without degenerative or erosive change. Soft tissues are unremarkable. No joint effusion is seen. Impression: Unremarkable right knee radiographs. Reviewed, dictated and finalized at location . REGISTER MECHANIC Impression: Unremarkable right knee radiographs.
== END 2024-06-16 11:49 | disposition home or self-care (01) ==
LOC: MICIMG 11:50
PROVIDERS: PCP Family Medicine; Visit Provider Family Medicine
DX: M25.561 Pain in right knee (principal); M23.90 Unspecified internal derangement of unspecified knee
CPT/HCPCS: 73562

== ENCOUNTER 2024-07-06 09:14 | Outpatient (CLI) | payer MEDICARE, OTHER, SELFPAY ==
--- NOTE | ~2024-07-06 | MR_ITS ---
EXAMINATION: MR knee RT wo con DATE: 07/06/2024 09:41 INDICATION: Internal derangement of the right knee TECHNIQUE: Magnetic resonance imaging (MRI) of the right knee was performed without intravenous contr ast. Sequences included coronal PD-weighted FSE, coronal PD-weighted FS FSE, sagittal T2-weighted FS E, sagittal PD-weighted FS FSE and axial PD weighted fat saturated FSE. COMPARISON: None. FINDINGS: Medial compartment: Longitudinal horizontal tear extending to the inferior articular surface of the posterior body and po sterior horn of the medial meniscus. There is an additional complex tear at the anterior horn of the medial meniscus. There is deep chondral ulceration and fissuring with underlying subarticular edema-l meagan signal change along the anterior to central weightbearing medial femoral condyle. Additional deep chondral fissure extending across the medial side of the medial tibial plateau also mild underlying subarticular edema-like signal change. Lateral compartment: Lateral meniscus is normal. Articular cartilage is normal. Patellofemoral compartment: Deep chondral ulceration and fissuring with underlying subarticular cystlike and edema-like signal ch ronda at the medial patellar facet and at the inferior half of the trochlear groove. Additional partia l-thickness chondral fissuring involving up to 50% the cartilage thickness at the lateral patellar fa cet. Ligaments and tendons: Anterior and posterior cruciate ligaments are normal. The medial collateral ligament and fibular manuel ateral ligament complex are normal. The extensor mechanism is normal. The visualized medial and later al hamstring tendons as well as the iliotibial band are normal. Fluid: Physiologic amount of fluid in the joint space. No loose osteochondral bodies identified. Osseous/other: Aside from the previous noted subarticular edema-like signal changes there is otherwise normal marrow signal. No fracture or pathologic marrow replacing process. IMPRESSION: 1. Medial meniscal tear, complex at the anterior horn and longitudinal horizontal at the posterior barb dy and posterior horn. 2. Mild osteoarthritis with associated high-grade chondromalacia in the medial and patellofemoral com partments. Reviewed, dictated and finalized at location A. ONARY FELLOW IMPRESSION: 1. Medial meniscal tear, complex at the anterior horn and longitudinal horizont al at the posterior body and posterior horn. 2. 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
== END 2024-07-06 09:15 | disposition home or self-care (01) ==
PROVIDERS: PCP Family Medicine; Visit Provider Family Medicine
DX: M17.11 Unilateral primary osteoarthritis, right knee (principal); S83.231A Complex tear of medial meniscus, current injury, right knee, initial encounter; X58.XXXA Exposure to other specified factors, initial encounter
CPT/HCPCS: 73721

== ENCOUNTER 2024-07-11 10:49 | Outpatient (RCR) | payer MEDICARE, OTHER, SELFPAY ==
--- NOTE | 2024-07-12 09:53 | PTOPEVDC ---
Assessment and note entered by Willi Duarte, PT, DPT Thank you for referring Nirav Gonzáles to [facility].? An evaluation has been completed. No further treatment is needed. Evaluation Information Assessment Status Evaluation Diagnosis R knee pain ICD-10 Condition Codes (PT) Pain in right knee M25.561 Subjective Information Pt states he was cooking and pivoted on his knee and felt a pain in his knee. MRI results show a torn meniscus. Pt reports very mild pain at rest, pain increases with activity. He states his activity level has changed quiet a bit. He states he typically walks 1.5 miles in the morning. He works at [employer] 3x/wk and does a lot of walking. He is seeing an orthopedic doctor next month, he is anticipating surgery. Reported Pain Level Pain Score 1: Self Report Assessment PT Clinical Summary Pt presents to therapy today for his initial evaluation with a diagnosis of knee pain with a positive meniscus tear on MRI, pt is anticipating surgery. Pt ambulates at a decreased speed from his baseline reports and has fear avoidance behaviiors with his normal ADLs. Pt educated on pre-op exercises, answered questions, and encouraged a return to daily walking. Pt plans to perform the issued HEP until his orthopedic consult in the next few weeks. Pt does not report any additional questions. Evaluation and discharged to [facility]. Plan of Care PT Services Indicated No Treatment Frequency and evaluate and discharge Duration
== END 2024-07-12 11:45 | disposition home or self-care (01) ==
LOC: ANHGOSHPT 10:49
PROVIDERS: PCP Family Medicine; Visit Provider Family Medicine
DX: M25.561 Pain in right knee (principal); M23.90 Unspecified internal derangement of unspecified knee
CPT/HCPCS: 97110; 97161

== ENCOUNTER 2024-09-05 01:11 | Day surgery (SDC) | payer OTHER, MEDICARE, SELFPAY ==
[2024-08-30 13:36] VITALS: BMI 27.9
--- NOTE | 2024-08-30 13:45 | PC.NURSE ---
Report to the Outpatient Waiting Room, entrance under the green pavilion located off [facility], at time __100pm on date _09/05/24 . Planned Procedure Time: _300pm .? Time changes happen often and if your time is changed the preop area will call you the afternoon before. - You and your visitor will be asked to self-screen and do not enter if you have any COVID symptoms. Please call surgeon if you need to reschedule. - A mask is optional within the hospital at this time. Patients may have clear liquids (water, carbonated beverages, clear teas, apple juice) until 3 hours prior to surgery with a maximum of 20 ounces. - No food from midnight until time of surgery and no smoking, or chewing tobacco (or any form of nicotine). No chewing gum, candy or mints.(1200pm) - Take only the following medications with a SIP of water on the morning of surgery: ___Tylenol if needed DO NOT STOP ANY OF YOUR OTHER PRESCRIPTION MEDICATIONS PRIOR TO SURGERY EXCEPT THE FOLLOWING Hold all vitamins and supplements for 3 days per anesthesiologist.Date to take last dose___09/01/24 Medications to discontinue per physician None Date to take last dose__None Please no make-up, nail honduran, hairspray, perfume, deodorant, or body powder the day of surgery.? No jewelry (including any body piercings) or valuables the day of surgery, leave them at home.? Please take a shower or bath the night before, or the morning of, surgery with an antibacterial soap.? Wear comfortable, loose fitting clothing.? - Jewelry must be removed prior to entering the operating room.? Rings and piercings that are not removed may be cut off. - The hospital will not accept responsibility for valuables.? - Please leave all valuables, including medications, at home the day of surgery. If you are going home after surgery, a licensed milk wagon driver must drive you home.? - NO public transportation without another adult if you receive anesthesia. - We recommend that an adult stay with you for 24 hours following discharge. - We also recommend that you do not drive, make important decision, drink alcoholic beverages, or take any drugs that were not prescribed by your health care provider for at least 24 hours after your discharge time. Follow any additional instructions given to you from your surgeon. Telephone instructions given to _Patient and asked if any additional questions and then verbalized understanding. Patient advised to call surgeon office or pre surgery nurse liaison [phone] if any additional questions.
[2024-09-05] VITALS (8 sets, daily range): BP systolic 111–137; BP diastolic 66–89; PULSE 54–76; RESP 12–16; TEMP 36.4; O2SAT 97–100
--- OUTSIDE RECORDS SUMMARY | 2024-09-05 01:14 | XMS_ITS | Clinical Summary ---
Author Organization [facility] Address [address] [place] [address] Care Team Providers Care Corporate Compliance Director Name Role Phone Oswald Baptiste Primary Care Provider + Allergies Active Allergy Reactions Criticality Noted Date Comments Achromycin Rash Medium 09/23/2022 Medications atorvastatin (LIPITOR) 20 mg tabletIndication s:hyperlipidemia Take 1 tablet (20 mg total) by mouth nightly 0 Active sildenafiL (VIAGRA) 100 mg tabletIndication s:Erectile Dysfunction Take 1 tablet (100 mg total) by mouth as needed for erectile dysfunction 3 Active multivitamin capsuleIndicatio ns:Vitamin Deficiency Take 1 capsule by mouth every morning Active terbinafine (LamISIL) 1 % creamIndications :rash Apply 1 Application topically as needed for itching or irritation 3 Active triamcinolone (KENALOG) 0.1 % ointment Apply 1 Application topically as needed for irritation or rash 3 Active magnesium gluconate 200 mg tabletIndication s:hypomagnesemia Take 1.25 tablets (250 mg total) by mouth nightly Active cholecalciferol (VITAMIN D-3) 400 unit capsule Take 1 tablet/capsule (400 Units total) by mouth every morning Active oxyCODONE (ROXICODONE) 5 mg immediate release tabletIndication s:Pain Take 1 tablet (5 mg total) by mouth every 4 (four) hours as needed for pain 42 tablet 3 Active Additional Information Patient not taking.Reported on 03/02/2023 cyclobenzaprine (FLEXERIL) 5 mg tablet Take 2 tablets (10 mg total) by mouth 3 (three) times a day as needed for muscle spasms 30 tablet 3 Active Active Problems Problem Noted Date Diagnosed Date Lumbar radiculopathy 10/31/2022 Immunizations Immunization Administration Dates Next Due Flucelvax Influenza Quad 02/10/2019,03/04/2017 Influenza, Quadrivalent, Spl it, Preservative Free, Intramuscular 03/17/2018 Surgical History Surgery Date Site/Laterality Comments TONSILLECTOMY MICRODISCECTOMY Medical History Medical History Date Comments Wears glasses Arthritis Low back pain Left leg pain GERD (gastroesophageal reflux disease) Family History Relation Name Status Comments Father Social History Tobacco Use Types Packs/Day Years Used Date Smoking Tobacco: Never Passive Smoke Exposure: Never Smokeless Tobacco: Never Tobacco Cessation:Counseling Given: Not Answered AUDIT-C Answer Date Recorded Q1: How often do you have a drink containing alc ohol? Monthly or less 03/02/2023 Q2: How many drinks containi ng alcohol do you have on a typical day when you are drinking? 1 or 2 03/02/2023 Q3: How often do you have si x or more drinks on one occasion? Never 03/02/2023 Personal Safety Answer Date Recorded Have you ever been in or are you currently in a harmful physical or emotional relationship or is someone making you feel afraid or unsafe? Denies 01/12/2023 Sex and Gender Information Value Date Recorded Sex Assigned at Not on file Legal Sex Male 7:50 AM CDT Gender Identity Not on file Sexual Orientation Not on file Obstetrics History Last Filed Vital Signs Vital Sign Reading Time Taken Comments Blood Pressure 128/85 03/02/2023 11:31 AM CDT Pulse 63 03/02/2023 11:31 AM CDT Temperature 36 C (96.8 F) 01/12/2023 5:50 PM CDT Respiratory Rate 15 01/12/2023 5:30 PM CDT Oxygen Saturation 95% 01/12/2023 5:30 PM CDT Inhaled Oxygen Concentration - - Weight 92.4 kg (203 lb 11.3 oz) 023 12:55 PM CDT Height 182.9 cm (6') 03/02/2023 11:31 AM CDT Body Mass Index 27.63 12/15/2022 12:55 PM CDT Plan of Treatment Health Maintenance Due Date Last Done Comments Colon Cancer Screening-Colonoscopy 1957 Depression Screening 1957 Hepatitis C Screening 1957 Prostate Cancer Screening-PSA 1957 DTaP/Tdap/Td Vaccine (1 - Tdap) 1968 Hepatitis B Screening 09/15/1975 Pneumococcal vaccine 65+ (1 of 1 - PCV) 09/15/2007 Zoster Vaccine (1 of 2) 09/15/2007 Abdominal Aortic Aneurysm (A AA) Screen 2022 Well Visit 65+ 2022 Fall Risk Assessment 01/13/2024 01/12/2023, 09/24/19 Influenza Vaccine (#1) 2024 9, 03/17/2018, 03/04/2017 Insurance [facility] CHO[employer] [facility] HMO/PPO Address: [address] [address] [place] [address] [facility] MEDICARE [facility] CHO[employer] [facility]US [facility] H[facility]/PPO Address: [address] [address] [place] [address] [facility] MEDICARE Advance Directives For more information, please contact: [phone] * Full Code (Latest Code Status on File) Date Activated Date Inactivated Comments 01/12/2023 8:12 AM 01/12/2023 9:58 PM Care Teams Corporate Compliance Director Relationship Specialty Start Date End Date Oswald Baptiste PA [address] [place] [address] PCP - General Physician Combination Technician 07/18/22
--- OUTSIDE RECORDS SUMMARY | 2024-09-05 01:14 | XMS_ITS | Continuity of Care Document ---
Author Name [facility] Organization [facility] Care Team Providers Care Confidential Secretary Name Role Phone [facility] Unavailable Unavailable Medications Combined list of outpatient medications from Department of Defense and Veterans Affairs facilities.Medications provided include 1) outpatient medications from the last 15 months, and 2) patient-reported medications. Medication Details Route Status Patient Instructions Prescription Expires Prescription Number Last Dispense Date Ordering Provider Order Date Order Qty Source atorvastati n 20 mg tablet 20 mg, Oral, # 90 EA, 1 total refill(s ), Hard Stop Oral (given by mouth) Discont inued 07/05/2024 4 2024 90.0 Ambulat ory Pharmac y atorvastati n 20 mg tablet 20 mg, Oral, # 90 EA, 1 total refill(s ), Hard Stop Oral (given by mouth) Ordered 07/05/2025 5 2024 90.0 Ambulat ory Pharmac y atorvastati n 20 mg tablet 20 mg, Oral, Daily, # 90 EA, 3 total refill(s ), Hard Stop Oral (given by mouth) Complet ed 11/24/2023 4 2023 90.0 Ambulat ory Pharmac y hydrocortis one 2.5% cream [30g] See Instruct chica, # 30 g, 2 total refill(s ), Hard Stop Ordered 02/08/2025 4 2023 30.0 Ambulat ory Pharmac y mupirocin 2% ointment [22g] See Instruct ions, # 22 g, 0 total refill(s ), Hard Stop Complet ed 10/31/2023 3 2023 22.0 Ambulat ory Pharmac y sildenafil 100 mg tablet 100 mg, Oral, Daily, # 10 EA, 5 total refill(s ), Hard Stop Oral (given by mouth) Ordered 01/04/2025 5 2024 10.0 Ambulat ory Pharmac y sildenafil 100 mg tablet See Instruct ions, # 10 EA, 5 total refill(s ), Hard Stop Complet ed 11/24/2023 4 2023 10.0 Ambulat ory Pharmac y terbinafine 1% cream [30g] See Instruct ions, # 30 g, 3 total refill(s ), Hard Stop Ordered 02/08/2025 4 2023 30.0 Ambulat ory Pharmac y terbinafine 1% cream [30g] See Instruct ions, # 90 g, 2 total refill(s ), Hard Stop Complet ed 10/28/2023 3 2023 90.0 Ambulat ory Pharmac y terbinafine 1% cream [30g] See Instruct ions, # 30 g, 3 total refill(s ), Hard Stop Discont inued 02/19/2024 4 2023 30.0 Ambulat ory Pharmac y triamcinolo ne 0.1% ointment [80g] See Instruct ions, # 80 g, 2 total refill(s ), Hard Stop Complet ed 10/28/2023 3 2023 80.0 Ambulat ory Pharmac y triamcinolo ne 0.1% ointment [80g] See Instruct ions, # 80 g, 2 total refill(s ), Hard Stop Complet ed 08/03/2024 4 2024 80.0 Ambulat ory Pharmac y triamcinolo ne 0.1% ointment [80g] See Instruct ions, # 80 g, 1 total refill(s ), Soft Stop Ordered 5 2024 80.0 Ambulat ory Pharmac y Allergies, Adverse Reactions, Alerts Combined list of allergies from Department of Defense and Veterans Affairs facilities. It does not include entries that were removed or entered in error. Substance Category Reaction Severity Reaction type Status Date Reported Comments Source sulfamethoxaz ole-trimethop rim Propensity to adverse reactions to drug Unknown Active 4 RASHES Unknown Organizat ion tetracycline Propensity to adverse reactions to drug Unknown Active 4 RASHES Unknown Organizat ion Immunizations Combined list of available immunizations from the Department of Defense and Veterans Affairs facilities. 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 Mix Status Comments Source influenza, injectable, quadrivalent- pf 2017 150 [employer] complet ed influenza , injectabl e, quadrival ent-pf 03/18/18 Given Ambulat ory Pharmac y influenza, seasonal, injectable 2010 zzLef t Arm [id number] sanofi pasteur complet ed influenza , seasonal, injectabl e 03/11/11 Given Ambulat ory Pharmac y influenza virus vaccine,split [facility] [id number] [employer] Unzippedi pa complet ed influenza virus vaccine,s plit 04/23/07 Given Ambulat ory Pharmac y tetanus, diphtheria, acellular pertu is 2005 zzLef t Arm [id number] sanofi pasteur complet ed tetanus, diphtheri a, acellular pertussis 11/17/05 Given Ambulat ory Pharmac y influenza virus vaccine,split 2001 15 complet ed influenza virus vaccine,s plit 03/10/02 Given Ambulat ory Pharmac y influenza virus vaccine,split 2000 zzLef t Arm [id number] 15 sanofi pasteur complet ed influenza virus vaccine,s plit 03/26/01 Given Ambulat ory Pharmac y influenza virus vaccine, whole virus 2000 [id number] [facility] complet ed influenza virus vaccine, whole virus 05/28/00 Given Ambulat ory Pharmac y influenza virus vaccine,split 2000 zzLef t Arm [id number] [facility] complet ed influenza virus vaccine,s plit 05/28/00 Given Ambulat ory Pharmac y anthrax vaccine 1999 zzLef t Arm [id number] [employer] complet ed anthrax vaccine 08/23/99 Given Ambulat ory Pharmac y influenza virus vaccine,split [id number] [facility] complet ed influenza virus vaccine,s plit 04/10/99 Given Ambulat ory Pharmac y influenza virus vaccine, whole virus 1998 [id number] 16 [employer] complet ed influenza virus vaccine, whole virus 04/10/99 Given Ambulat ory Pharmac y anthrax vaccine 1998 [id number] [employer] complet ed anthrax vaccine 02/24/99 Given Ambulat ory Pharmac y tuberculin purified protein derivative 1998 [id number] [facility] complet ed Patient Tolerance : Negative Ambulat ory Pharmac y anthrax vaccine 1998 [id number] [employer] complet ed anthrax vaccine 09/26/98 Given Ambulat ory Pharmac y anthrax vaccine 1998 [id number] [employer] complet ed anthrax vaccine 09/12/98 Given Ambulat ory Pharmac y anthrax vaccine 1998 [id number] [employer] complet ed anthrax vaccine 08/29/98 Given Ambulat ory Pharmac y influenza virus vaccine, whole virus [id number] [facility] complet ed influenza virus vaccine, whole virus 04/06/98 Given Ambulat ory Pharmac y tuberculin purified protein derivative [id number] [facility] complet ed tuberculi n purified protein derivativ e 04/06/98 Given Ambulat ory Pharmac y influenza virus vaccine,split [id number] 15 [facility] complet ed influenza virus vaccine,s plit 04/06/98 Given Ambulat ory Pharmac y typhoid vaccine, parenteral 1997 [id number] [facility] complet ed typhoid vaccine, parentera l 04/06/98 Given Ambulat ory Pharmac y influenza virus vaccine, whole virus 1996 16 Unknown complet ed influenza virus vaccine, whole virus 03/13/97 Given Ambulat ory Pharmac y influenza virus vaccine,split 1996 15 Unknown complet ed influenza virus vaccine,s plit 03/13/97 Given Ambulat ory Pharmac y hepatitis A adult vaccine 1995 52 Unknown complet ed hepatitis A adult vaccine 09/15/95 Given Ambulat ory Pharmac y yellow fever vaccine 1994 37 [employer] complet ed yellow fever vaccine 01/23/95 Given Ambulat ory Pharmac y typhoid vaccine, parenteral 1994 41 Unknown complet ed typhoid vaccine, parentera l 01/23/95 Given Ambulat ory Pharmac y tetanus-dipht h toxoids (Td) adult/adol 1994 09 Unknown complet ed tetanus-d iphth toxoids (Td) adult/ado l 01/13/95 Given Ambulat ory Pharmac y meningococcal polysaccharid e (MPSV4) 1994 32 Unknown complet ed meningoco ccal polysacch aride (MPSV4) 01/13/95 Given Ambulat ory Pharmac y poliovirus vaccine, live, oral 1981 02 Unknown complet ed polioviru s vaccine, live, oral 10/26/81 Given Ambulat ory Pharmac y measles/mumps /rubella virus vaccine 1980 03 complet ed measles/m umps/rube lla virus vaccine 05/26/80 Given Ambulat ory Pharmac y Procedures Combined list of: 1) Procedures from Department of Veterans Affairs facilities going back up to thelast 18 months, not all [place] non-surgical procedures are included; 2) All procedures from the Department of Defense facilities. Procedure Procedure Type Code Date Perfomer Comments Sourc e No data available for this section Ambulatory P harmacy Assessment and Plan Combined list of future care activities from Department of Defense and Veterans Affairs facilities (e.g., assessment and plan notes, appointments, orders, and referrals). Additional future care activities may be listed in the Plan of Care section. Result Assessment and Plan Date Source Assessment and Plan No data available for this section 09/05/2024 Ambulatory Pharmacy Functional Status Combined list of recent functional and cognitive assessments recorded at [facility] of Defense and [facility] [place] Functional [place] Measurement (FIM) Scale: 1 = Total Assistance (Subject = 0% +), 2 = Maximal Assistance (Subject = 25% +), 3 = Moderate Assistance (Subject = 50% +), 4 = Minimal Assistance (Subject = 75% +), 5 = Supervision, 6 = Modified Steuben (Device), 7 = Complete [place] (Timely, Safely). Assessment Date/Time Source Assessment Type Assessment Skill Assessment Score Assessment Details No data available for this section
--- OUTSIDE RECORDS SUMMARY | 2024-09-05 01:14 | XMS_ITS | Referral Summary ---
Author Organization [facility] Address [address] [place] [address] Care Team Providers Care Charge Hand Name Role Phone Oswald Baptiste Primary Care [...] Quadrivalent, Spl it, Preservative Free, Intramuscular 03/17/2018 Social History Tobacco Use Types Packs/Day Years [...] on file Sexual Orientation Not on file Last Filed Vital Signs Vital Sign Reading Time Taken Comments Blood Pressure 128/85 03/02/2023 11:31 AM CDT Pulse 63 03/02/2023 11:31 AM CDT Temperature 36 C (96.8 F) 01/12/2023 5:50 PM CDT Respiratory Rate 15 01/12/2023 5:3 0 PM CDT Oxygen Saturation 95% 01/12/2023 5:30 PM CDT Inhaled Oxygen Concentration - - Weight 92.4 kg (203 lb 11.3 oz) 023 12:55 PM CDT Height 182.9 cm (6') 03/02/2023 11:31 AM CDT Body Mass Index 27.63 12/15/2022 12:55 PM CDT Plan of Treatment Not on file Insurance [facility] [employer] [place] [id number] [place] [employer]IC[employer] [facility] Address: [address] [address] [place] [address] Advance Directives For more information, please contact: [phone] * Full Code (Latest Code Status on File) Date Activated Date Inactivated Comments 01/12/2023 8:12 AM 01/12/2023 9:58 PM Care Teams Charge Hand Relationship Specialty Start Date End Date Oswald Baptiste PA [address] [place] [address] PCP - General Physician Donor Relations Manager 07/18/22
--- NOTE | 2024-09-05 09:49 | ECG_ITS ---
Test Date: 2024-09-05 14:14:23 Measurements Intervals [place] Rate: 58 P: 31 NH: 153 QRS: 16 QRSD: 105 T: 31 QT: 408 QTc: 402 Interpretive Statements SINUS BRADYCARDIA WITH OCCASIONAL VENTRICULAR PREMATURE COMPLEXES BORDERLINE ECG No previous ECG available for comparison Electronically Signed On 09-05-2024 14:16:35 CDT by Raymundo Zepeda D.O.
[2024-09-05] MEDS: BUPIVACAINE/EPINEPHRINE 0.5% 10 ML VIAL 20 ML INFILTRATE (10:28)
[2024-09-05] MEDS: ACETAMINOPHEN 500 MG TABLET 1000 MG PO (13:25)
[2024-09-05] MEDS: LACTATED RINGERS 1,000 ML 30 ML IV CONT ×2 (13:30→15:22)
[2024-09-05] MEDS: KETOROLAC 15 MG/ML VIAL (*BKC) IV PUSH (13:30)
--- NOTE | 2024-09-05 13:31 | P.PNAN_ITS ---
Anes - Initial Pre Proc Eval Procedure: Operation Date: 09/05/24 15:00 Proposed Procedures p Right Knee Arthroscopy, Partial Medial Meniscectomy - Gerard Chaves MD Date/Time: 09/05/24 13:31 Surgeon: Gerard Chaves MD Pre Op Diagnosis: right knee medial meniscus tear Patient Data Age: 68 Gender: M Height: 1.83 m Weight: 92.4 kg Last Vital Signs Temp 36.4 C L 09/05/24 13:04 Pulse 76 09/05/24 13:04 Resp 16 09/05/24 13:04 BP 120/80 09/05/24 13:04 Pulse Ox 99 09/05/24 13:04 O2 Del Method Room Air 09/05/24 13:04 Allergies Allergy/AdvReac Type Severity Reaction Status Date / Time acromycin Allergy Mild Rash Uncoded 09/05/24 13:12 Home Medications ?Medication ?Instructions ?Recorded ?Confirmed ?Type cholecalciferol (vitamin D3) 25 25 mcg PO DAILY 09/19/22 09/05/24 History mcg (1,000 unit) capsule magnesium 250 mg tablet 250 mg PO HS 09/19/22 09/05/24 History multivitamin 1 tablet PO DAILY 09/19/22 09/05/24 History sildenafil 100 mg tablet (Viagra) 100 mg PO DAILY PRN sexual 01/05/24 09/01/24 Rx activity #10 tabs atorvastatin 20 mg tablet 20 mg PO HS #90 tabs 07/05/24 09/05/24 Rx acetaminophen 500 mg tablet 500 mg PO .12hr 08/30/24 09/01/24 History (Tylenol Extra Strength) hydrocodone 5 mg-acetaminophen 325 1 - 2 tablet PO Q4-6H PRN pain 3 09/05/24 Rx mg tablet days #10 tabs Patient hx anesthesia problems: none Family hx anesthesia problems: none Results Review: All pre-operative results and documents have been reviewed as part of the pre- operative evaluation. [facility] Past Medical History Medical History Biceps muscle tear Septic olecranon bursitis of left elbow Fracture of radial head, left, closed Elbow laceration Tinea cruris SLAP lesion of shoulder Actinic keratosis Gastro-esophageal reflux disease without esophagitis Surgical History Surgical History History of tonsillectomy History of sinus surgery History of back surgery discectomy and decompression-Dr. Macias 01/12/23 H/O discectomy (~1999) 1999 ( dr. ana stephen) Family History Family History Sibling Diabetes mellitus Family history of obesity Mother Patient's mother is in good health Father Patient's father is , Onset Age: 40 Family history of elevated blood lipids Family history of thoracic aortic aneurysm Social History Social History Social History: Enjoys playing bridge (card game) Smoking status: Never smoker Alcohol intake: current Drinks per week: 1 Alcohol use details: 2 per month Substance use: never Substance use type: does not use Do You Feel Safe in your Home?: Yes Lack of Transportation: No Lack of Food: Never True Current Housing: I Have Housing Concerned About Future Housing: No Difficulty Paying Gas/Electric Bills: No Difficulty Paying for Meds: No Currently Unemployed: No Education: Master's Degree or Higher Difficulty w/ Childcare or Family Care: No Living arrangements: with family Additional living arrangements comments: Occupation/Education: occupation 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 Informed Consent: The patient's anesthetic plan and its attendant risks and benefits were discussed with the patient/family/POA. Questions were solicited and answers provided to the satisfaction of the patient/family/POA.
--- NOTE | 2024-09-05 14:14 | WPDHPUPDATE1 ---
History and Physical Update Update Date/Time: 09/05/24 14:14 History and Physical has been reviewed, including an updated exam of the patient. There are NO changes in the patient's condition. Risks, benefits, and alternatives have been discussed and questions answered. Patient agrees to proceed with procedure.
[2024-09-05] MEDS: ceFAZolin 2 GM/D5W 50 ML 2 GM/50 ML BAG IVPB (14:25)
[2024-09-05] MEDS: BUPIVACAINE/EPINEPHRINE 0.5% 50 ML VIAL 20 ML INFILTRATE (14:52)
--- NOTE | 2024-09-05 15:49 | P.OP_ITS ---
Procedure Note - Detailed Date of Procedure 09/05/24 Pre-op Diagnosis Right knee medial meniscus tear Post-op Diagnosis Same Procedure Performed Arthroscopic partial medial meniscectomy, right knee. Surgeon Gerard Chaves MD Chronic Disease Epidemiologist Ruth Ann Bauer PA-C Anesthesia General Findings Extensive tear in the medial aspect. The large flap of meniscal tissue was displaced anteriorly. The posterior horn was torn with a complex pattern. Good stable rim was obtained with the arthroscopic punches and shaver and radiofrequency probe. 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 Small area of grade 4 chondromalacia on medial posterior tibia. Fairly significant medial plica treated with debridement. The lateral compartment was normal. The ACL was intact. 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 Description of Procedure The patient was identified and the surgical site confirmed and signed in the preoperative holding area. Antibiotics were started per protocol, and the patient was brought to the operative room and transferred to the OR table. A general anesthetic was administered. Supine position with the operative lower extremity position in the leg gimenez after placement of a well padded tourniquet. The leg support was lowered and the contralateral limb was supported with a soft bolster. The knee was prepped and draped in the usual sterile f ashion. A time-out was performed. The portal sites were marked and infiltrated with 0.5% Marcaine 20 mL. The limb was exsanguinated and the tourniquet inflated to 300 mL Hg. Standard inferolateral and inferomedial portals were established. Inflow was obtained with the saline pump. The camera was introduced. Diagnostic inspection of the joint was accomplished. The meniscus was debrided with the art hroscopic shaver and punches until stable. The large anterior flap fragment was removed with the arthroscopic grasper. The radiofrequency probe was also used for further d?bridement. A moderate significant medial plica was treated with debridement. The arthroscopic instruments were removed. The tourniquet released and wounds closed with subcutaneous 4-0 Monocryl absorbable suture. Steri strips and a sterile dressing were applied. A light elastic wrap was placed. The patient was extubated and brought to the recovery room in stable condition. Estimated Blood Loss 5 Drains No Complications No immediate complications Condition Stable Disposition PACU [facility] Billing Surgery - Charge Forward: Surgery Billing
== END 2024-09-05 17:27 | disposition home or self-care (01) ==
PROVIDERS: PCP Family Medicine; Visit Provider Orthopaedic Surgery
PROC: (CPT 29870; principal; 2024-09-05 15:00)
DX: M23.321 Other meniscus derangements, posterior horn of medial meniscus, right knee (principal); M22.41 Chondromalacia patellae, right knee
CPT/HCPCS: 29881; 93005; A9270; J0690; J1100; J1596; J1885; J2003; J2250; J2371; J2405; J2704; J3010; J7120

== ENCOUNTER 2024-10-21 10:45 | Outpatient (RCR) | payer OTHER, MEDICARE, SELFPAY ==
--- NOTE | 2024-09-12 16:17 | OPREHPOC ---
Outpatient Therapy Plan of Care This is a Multidisciplinary Plan of Care that may contain components documented by all disciplines (PT, OT, and ST.) PT Problem 1 PT Problem #1 Knowledge Deficit PT Goal 1 Goal / Goal Update 1. Pt to be IND with issued HEP Target Visit 8 PT Problem 2 PT Problem #2 Impaired Range of Motion PT Goal 1 Goal / Goal Update 1. Pt to improve knee flexion ROM to 125 deg to improve stair ambulation Target Visit 8 PT Problem 3 PT Problem #3 Impaired Functional Mobility PT Goal 1 Goal / Goal Update 1. pt to report return to 3 miles of daily walking 2. Pt to report 25% improvement on the LEFS Target Visit 8
--- NOTE | 2024-09-12 16:17 | PTOPEVAL1 ---
Assessment and note entered by Willi Duarte, PT, DPT Evaluation Information Assessment Status Evaluation Diagnosis R knee partial medical meniscectomy ICD-10 Condition Codes (PT) Encounter for other orthopedic aftercare Z47.89 Onset 09/05/24 Subjective Information Pt had a R knee partial medical meniscectomy. Pt states most of his swelling is down. States he has a stair stepping that he likes to use daily but has not gotten back to that. Is currently taking 1500mg of Tylenol a day. Was walking 3 miles daily prior to injury. Reported Pain Level Pain Score 1: Self Report Assessment PT Clinical Summary Pt present to therapy today for his initial evaluation following a R knee partial medial meniscectomy. Today he demonstrates limitations in his ROM and strength when compared to his L knee. He ambulates and performs stairs favoring his R knee. Skilled therapy services are indicated to address the deficits noted above, to improve ROM, and to return to PLOF. Plan of Care Interventions Electrical Stimulation,Gait Training,Hot Pack/Cold Pack,Manual Therapy,Neuro Re-education,Patient/ Caregiver Education,Therapeutic Activities, Therapeutic Exercise Treatment Frequency and 1x/wk for 6 visits Duration These treatments will address the objective and functional deficits as defined above. The patient will be advanced safely and appropriately in order for the patient to progress towards his/her prior level of function. Additional exercises will be introduced and as well as a comprehensive home exercise program upon discharge, if needed, ?to ensure carryover of functional gains achieved in the clinic. This treatment plan has been reviewed and agreement upon by the patient.
--- NOTE | 2024-10-21 11:34 | OPREHPOC ---
Outpatient Therapy Plan of Care This is a Multidisciplinary Plan of Care that may contain components documented by all disciplines (PT, OT, and ST.) PT Problem 1 PT Problem #1 Knowledge Deficit PT Goal 1 Goal / Goal Update 1. Pt to be IND with issued HEP Target Visit 8 Progress Met PT Problem 2 PT Problem #2 Impaired Range of Motion PT Goal 1 Goal / Goal Update 1. Pt to improve knee flexion ROM to 125 deg to improve stair ambulation Target Visit 8 Progress Met PT Problem 3 PT Problem #3 Impaired Functional Mobility PT Goal 1 Goal / Goal Update 1. pt to report return to 3 miles of daily walking 2. Pt to report 25% improvement on the LEFS Target Visit 8 Progress Met
--- NOTE | 2024-10-21 11:34 | PTOPDC ---
Assessment and note entered by Charles Calvo, PT Evaluation Information Assessment Status Discharge Diagnosis R knee partial medical meniscectomy ICD-10 Condition Codes (PT) Encounter for other orthopedic aftercare Z47.89 Onset 09/05/24 Subjective Information Reports that overall he is doing very well. Knee motion feels good and working his way back up to walking 3 miles a day. Feels comfortable with discharge at this time. Reported Pain Level Pain Score 2: Self Report Assessment PT Clinical Summary Patient has met all goals for therapy at this time and is suitable for discharge to [facility]. No concerns for discharge at this time as patient has progressed to pain free mobility and activity progression with no objective deficits. Plan of Care PT Services Indicated Yes
== END 2024-10-21 13:09 | disposition home or self-care (01) ==
LOC: ANHGOSHPT 10:45
PROVIDERS: PCP Family Medicine; Visit Provider Orthopaedic Surgery
DX: Z48.89 Encounter for other specified surgical aftercare (principal)
CPT/HCPCS: 97110; 97161; 97530